=== PATIENT | female | born 2000 | race Caucasian/White ===

== ENCOUNTER 2019-11-12 18:32 | Emergency (ER) | payer OTHER, SELFPAY ==
[2019-11-12 18:37] VITALS: BP 139/95; PULSE 108; RESP 20; TEMP 37.5; O2SAT 100; BMI 25.0
--- NOTE | 2019-11-12 18:48 | DI.CT.S_ITS ---
PROCEDURE: CT ABDOMEN PELVIS W CON INDICATIONS: severe pain, multiple gastric surgeries TECHNIQUE: After the administration of intravenous contrast, 5 mm thick sections acquired from the diaphragm to the symphysis. 5 mm coronal and sagittal reformats were acquired. For radiation dose reduction, the following was used: automated exposure control, adjustment of mA and/or kV according to patient size. COMPARISON: None. FINDINGS: Image quality: Excellent. ABDOMEN: Lung bases: Lung bases are clear. Heart size is normal. Solid organs: Liver is of normal size and moderately diffusely hypodense. There is an ovoid hypervascular mass adjacent to the inferior vena cava in segment VII, and a one slightly more caudal in segment VIII measuring 2.5 cm. And similar lesion is present along the lateral margin of the left hepatic lobe measuring 9 mm. Relative hyperdensity/hyperenhancement in the gallbladder fossa. Gallbladder appears normal. Biliary system is non dilated. Pancreas enhances normally. Spleen is normal in size and enhancement. No adrenal nodules. Kidneys demonstrate normal size and enhancement, without hydronephrosis. Peritoneum and bowel: There is severe distention of the distal rectum. A distinct anal canal is not visible. Semisolid stool as well as peripherally calcified 3.7 cm mass is present dependently in the rectum. There is a colorectal anastomosis and present along the right lateral margin of the rectum. A thickened segment of mid sigmoid is seen. No pericolic inflammation. There is a Wm button percutaneously placed in the left lower quadrant into the proximal sigmoid lumen. The majority of the proximal colon is decompressed. A normal appendix is present. Small bowel loops are of normal caliber. No free fluid or free air. Nodes and vessels: No retroperitoneal or mesenteric adenopathy by size criteria. Aorta and inferior vena cava are normal in size. Miscellaneous: No ventral hernias. PELVIS: Genitourinary: The urinary bladder is distended and anteriorly displaced. Bladder wall thickness is normal. The uterus is vertically oriented. There is a hypervascular corpus luteum on the right ovary. There small calcifications associated with the left ovary. Miscellaneous: No inguinal hernias or adenopathy. Bones: No suspicious bony lesions. No vertebral body compression fractures. IMPRESSION: 1. There is chronic appearing distention of the neorectum without CT evidence of proctitis. The reconstructed anal canal was not well seen. 2. Slight thickening of a short segment of mid sigmoid colon without significant pericolonic inflammation. Colitis is possible but felt less likely. 3. Normal appendix. 4. Moderate hepatic steatosis. 5. 3 hypervascular liver lesions, likely benign hemangiomas or focal nodular hyperplasia. Dictated by: Radha Gonzalez M.D. on 11/12/2019 at 21:01 Approved by: Radha Gonzalez M.D. on 11/12/2019 at 21:24
--- NOTE | 2019-11-12 19:05 | ED_ITS ---
HPI - Abdominal Pain General Chief Complaint: Abdominal Pain Stated Complaint: Bloody Stool, Stomach Pains, Throwing Up Yellow Time Seen by Provider: 11/12/19 18:35 Source: patient Mode of arrival: Ambulatory Limitations: no limitations History of Present Illness HPI narrative: 18-year-old female nonsmoker with extensive medical history presents with a chief complaint of significant epigastric pain for the past day or 2. She states her pain is worse when she moves and improves with rest. She denies any obvious radiation of the pain. She has had nausea but denies any vomiting and states that she has had multiple stools with nothing but blood. She denies fever or chills and is not dizzy nor weak or lightheaded. She does have some sharp reproduceable chest pain an is unclear how long that has been happening. 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 She has a Wm button in place in her left lower quadrant to allow her to irrigate and flush her lower bowels. She had most of her care in [place] and denies establishment with any local surgeons though a note from outside ED suggests she has established with GI at [facility] whom recommended establishing care with colorectal surgery for ongoing care. Related Data Allergies Allergy/AdvReac Type Severity Reaction Status Date / Time iodine Allergy Rash Verified 11/12/19 19:10 contrast Allergy Rash Uncoded 11/12/19 19:10 Review of Systems Constitutional Constitutional: Denies chills, Denies fatigue, Denies fever(s), Denies frequent falls, Denies lethargy and Denies weakness Eyes Eyes: Denies change in vision, Denies eye discharge, Denies irritation and Denies loss of vision ENT Ears, Nose, Mouth, and Throat: Denies change in voice, Denies dizziness, Denies neck pain, Denies sore throat and Denies throat swelling Cardiovascular Cardiovascular: Denies chest pain, Denies irregular heart rhythm, Denies lightheadedness, Denies palpitations, Denies dyspnea, Denies dyspnea on exertion and Denies orthopnea Respiratory Respiratory: Denies cough, Denies dyspnea, Denies dyspnea on exertion and Denies wheezing Gastrointestinal Gastrointestinal: Reports abdominal pain, Denies change in bowel habits, Denies diarrhea, Denies nausea and Denies vomiting Genitourinary Genitourinary: Denies hematuria, Denies flank pain, Denies urinary incontinence and Denies urinary urgency Musculoskeletal Musculoskeletal: Denies back pain, Denies muscle weakness, Denies neck pain, Denies numbness and Denies tingling Integumentary/Breasts Skin/Breast: Denies pruritus, Denies erythema, Denies rash and Denies wounds Neurologic Neurologic: Denies behavioral changes, Denies confusion, Denies dizziness, Denies frequent falls, Denies loss of vision, Denies numbness, Denies tingling and Denies weakness Psychiatric Psychiatric: Denies anxiety, Denies behavioral changes, Denies confusion, Denies depression, Denies homicidal ideation and Denies suicidal ideation Endocrine Endocrine: Denies fatigue, Denies flushing and Denies palpitations Hematologic/Lymphatic Hematologic/Lymphatic: Denies easy bruising Allergic/Immunologic Allergic/Immunologic: Denies urticaria, Denies throat swelling and Denies wheezing Patient History Medical History (Updated 11/13/19 @ 00:15 by Philippe Nowak DO) Imperforate anus (Acute) Social History Smoking Status: Never smoker Smoking Status: Never smoker Substance Use Type: does not use Exam Narrative Exam Narrative: GENERAL: [18] year old patient appears stated age. Well- nourished, well-developed patient, in mild distress. HEAD: Atraumatic. Normocephalic. EYES: Pupils equal round and reactive. Extraocular motions intact. No scleral icterus. No injection or drainage. ENT: Nose without bleeding, purulent drainage. Throat without erythema, tonsillar hypertrophy or exudate. Airway patent. NECK: Trachea midline. Non tender CARDIOVASCULAR: Regular rate and rhythm without murmurs, gallops, or rubs. RESPIRATORY: Clear to auscultation. Breath sounds equal bilaterally. No wheezes, rales, or rhonchi. GASTROINTESTINAL: Abdomen soft, non-tender, nondistended. EXTREMITIES: No edema or joint tenderness. BACK: Nontender without deformity or crepitance. No flank tenderness. NEURO: AOx3. SKIN: No rash or erythema of visible areas Initial Vital Signs Initial Vital Signs: Vital Signs Temperature 99.5 F 11/12/19 18:37 Pulse Rate 108 H 11/12/19 18:37 Respiratory Rate 20 11/12/19 18:37 Blood Pressure 139/95 H 11/12/19 18:37 Pulse Oximetry 100 11/12/19 18:37 Course Orders Ordered: ED Orders 11/12/19 18:48 CT abdomen pelvis w con Stat 11/12/19 18:50 Complete Blood Count AUTO DIFF Stat Comprehensive Metabolic Panel Stat Lipase Stat Magnesium Stat Troponin & CK Cardiac Panel Stat 11/12/19 19:04 EKG-12 Lead Stat 11/12/19 21:08 UA Complete [Urinalysis and Microscopic] Stat 11/12/19 21:26 US abdomen limited Stat 11/12/19 23:37 Hemoglobin and Hematocrit Stat Discontinued Medications Acetaminophen (Tylenol) 650 mg PO NOW ONE Stop: 11/12/19 21:26 Last Admin: 11/12/19 21:48 Dose: 650 mg Documented by: LINDA Al Hydrox/Mg Hydrox/Simethicone 20 ml/ Lidocaine HCl 15 ml 0 ml PO NOW ONE Stop: 11/12/19 23:51 Last Admin: 11/13/19 00:05 Dose: 35 ml Documented by: LINDA Diphenhydramine HCl (Benadryl) 25 mg IV NOW ONE Stop: 11/12/19 19:21 Last Admin: 11/12/19 19:31 Dose: 25 mg Documented by: MEISENB Sodium Chloride (Normal Saline 0.9%) 1,000 mls @ 125 mls/hr IV CONT FLOYD Last Infusion: 11/12/19 21:47 Dose: 0 mls/hr Documented by: Infusion: 11/12/19 21:04 Dose: 1,000 mls/hr Documented by: Admin: 11/12/19 19:30 Dose: 125 mls/hr Documented by: MEISENB Sodium Chloride (Normal Saline 0.9%) 1,000 mls @ 1,000 mls/hr IV BOLUS ONE Stop: 11/13/19 00:29 Last Infusion: 11/13/19 01:31 Dose: 0 mls/hr Documented by: Admin: 11/12/19 23:36 Dose: 1,000 mls/hr Documented by: SUMMERFARErica Ketorolac Tromethamine (Toradol) 15 mg IV NOW ONE Stop: 11/13/19 00:12 Last Admin: 11/13/19 00:18 Dose: 15 mg Documented by: LINDA Methylprednisolone (Solu-Medrol 125 Mg Vial) 125 mg IV NOW ONE Stop: 11/12/19 19:21 Last Admin: 11/12/19 19:31 Dose: 125 mg Documented by: JYOTSNA Pantoprazole Sodium (Protonix) 40 mg IV NOW ONE Stop: 11/12/19 18:46 Last Admin: 11/12/19 19:31 Dose: 40 mg Documented by: JYOTSNA Vital Signs Vital signs: Vital Signs - 8 hr 11/12/19 19:40 11/12/19 21:39 11/12/19 21:48 Temperature 99.0 F 99.0 F Pulse Rate 103 H 106 H Respiratory Rate 18 Blood Pressure Blood Pressure [Left Arm] 125/88 123/84 Pulse Oximetry 100 99 11/12/19 23:30 11/13/19 00:42 11/13/19 01:12 Temperature Pulse Rate 115 H 110 H 95 H Respiratory Rate 12 19 18 Blood Pressure Blood Pressure [Left Arm] 117/70 123/80 146/68 H Pulse Oximetry 97 99 96 11/13/19 01:31 11/13/19 01:32 Temperature 98.4 F Pulse Rate 105 H Respiratory Rate 15 Blood Pressure 117/83 Blood Pressure [Left Arm] Pulse Oximetry 99 MDM - Abdominal Pain Lab Data Result diagrams: 11/12/19 23:37 11/12/19 18:50 Labs: Lab Results 11/12/19 11/12/19 11/12/19 Range/Units 18:50 18:50 18:50 WBC 11.0 (4.5-11.0) X10^3/uL RBC 5.36 H (4.0-5.2) X10^6/uL Hgb 14.3 (12.0-16.0) g/dL Hct 42.8 (36-46) % MCV 79.7 L (80-100) fL MCH 26.7 (26-34) PG MCHC 33.5 (30-36) % RDW 14.3 (11.6-14.8) % Plt Count 362 (150-400) X10^3/uL Neut % (Auto) 59.1 (50-75) % Lymph % (Auto) 29.8 (25-40) % Monroe % (Auto) 7.2 (3-14) % Eos % (Auto) 3.3 (2-4) % Baso % (Auto) 0.6 (0-2) % Neut # (Auto) 6500 (5551-7152) /uL Lymph # (Auto) 3300 (6648-9244) /uL Monroe # (Auto) 800 (0-900) /uL Eos # (Auto) 400 (0-450) /uL Baso # (Auto) 100 (0-100) /uL Sodium 140 (137-145) mmol/L Potassium 4.1 (3.4-5.1) mmol/L Chloride 107 (98-107) mmol/L Carbon Dioxide 24 (22-32) mmol/L BUN 6 L (7-17) mg/dL Creatinine 0.54 (0.52-1.04) mg/dL Estimated GFR > 60.0 (>60) mL/min BUN/Creatinine Ratio 11.1 (6-22) Glucose 94 (70-100) mg/dL Calcium 10.1 (8.4-10.2) mg/dL Magnesium 2.2 (1.6-2.3) mg/dL Total Bilirubin 0.7 (0.2-1.3) mg/dL AST 65 H (14-36) IU/L ALT 90 H (<35) IU/L Alkaline Phosphatase 98 (38-126) U/L Total Creatine Kinase (30-135) U/L CK-MB (CK-2) CK-MB (CK-2) Rel Index Troponin I (0.01-0.034) ng/mL Total Protein 8.7 H (6.3-8.2) g/dL Albumin 5.0 (3.5-5.0) g/dL Globulin 3.7 (1.7-4.1) g/dL Albumin/Globulin Ratio 1.4 (1.0-2.8) Lipase 215 (23-300) U/L Urine Color Urine Appearance Urine pH (4.5-8.0) Ur Specific [place] (1.000-1.035) Urine Protein (Negative) Urine Glucose (UA) (Negative) g/dL Urine Ketones (NEGATIVE) Urine Occult Blood (Negative) Urine Nitrate (Negative) Urine Bilirubin (NEGATIVE) Urine Urobilinogen (0.2) E.U./dL Ur Leukocyte Esterase (NEGATIVE) Urine RBC (0-5/HPF) Urine WBC (0-5/HPF) Ur Squamous Epith Cells (0-5/HPF) Urine Bacteria (None) Ur Culture Indicated? 11/12/19 11/12/19 11/12/19 Range/Units 18:50 21:08 23:37 WBC (4.5-11.0) X10^3/uL RBC (4.0-5.2) X10^6/uL Hgb 13.7 (12.0-16.0) g/dL Hct 41.3 (36-46) % MCV (80-100) fL MCH (26-34) PG MCHC (30-36) % RDW (11.6-14.8) % Plt Count (150-400) X10^3/uL Neut % (Auto) (50-75) % Lymph % (Auto) (25-40) % Monroe % (Auto) (3-14) % Eos % (Auto) (2-4) % Baso % (Auto) (0-2) % Neut # (Auto) (0700-3467) /uL Lymph # (Auto) (1365-7510) /uL Monroe # (Auto) (0-900) /uL Eos # (Auto) (0-450) /uL Baso # (Auto) (0-100) /uL Sodium (137-145) mmol/L Potassium (3.4-5.1) mmol/L Chloride (98-107) mmol/L Carbon Dioxide (22-32) mmol/L BUN (7-17) mg/dL Creatinine (0.52-1.04) mg/dL Estimated GFR (>60) mL/min BUN/Creatinine Ratio (6-22) Glucose (70-100) mg/dL Calcium (8.4-10.2) mg/dL Magnesium (1.6-2.3) mg/dL Total Bilirubin (0.2-1.3) mg/dL AST (14-36) IU/L ALT (<35) IU/L Alkaline Phosphatase (38-126) U/L Total Creatine Kinase 71 (30-135) U/L CK-MB (CK-2) TNP CK-MB (CK-2) Rel Index TNP Troponin I < 0.012 (0.01-0.034) ng/mL Total Protein (6.3-8.2) g/dL Albumin (3.5-5.0) g/dL Globulin (1.7-4.1) g/dL Albumin/Globulin Ratio (1.0-2.8) Lipase (23-300) U/L Urine Color Yellow Urine Appearance Clear Urine pH 7.0 (4.5-8.0) Ur Specific [place] <=1.005 (1.000-1.035) Urine Protein Negative (Negative) Urine Glucose (UA) Negative (Negative) g/dL Urine Ketones Negative (NEGATIVE) Urine Occult Blood Negative (Negative) Urine Nitrate Negative (Negative) Urine Bilirubin Negative (NEGATIVE) Urine Urobilinogen 0.2 (0.2) E.U./dL Ur Leukocyte Esterase Negative (NEGATIVE) Urine RBC None seen (0-5/HPF) Urine WBC None seen (0-5/HPF) Ur Squamous Epith Cells 1-5 /hpf (0-5/HPF) Urine Bacteria Many (>30) H (None) Ur Culture Indicated? Cult not indicated Imaging Data CT scan - abdomen/pelvis: Radiologist's Impression: [place] [address] CT Scan Report Signed Patient: Jaye Stephens [facility]#: [id number] : 2000Acct:[id number] Age/Sex: te of Service: 11/12/19 Loc: ED Accession Number: [id number] Procedure: CT abdomen pelvis w con Ordering Provider: Philippe Nowak D.O. PROCEDURE: CT ABDOMEN PELVIS W CON INDICATIONS: severe pain, multiple gastric surgeries TECHNIQUE: After the administration of intravenous contrast, 5 mm thick sections acquired from the diaphragm to the symphysis. 5 mm coronal and sagittal reformats were acquired. For radiation dose reduction, the following was used: automated exposure control, adjustment of mA and/or kV according to patient size. COMPARISON: None. FINDINGS: Image quality: Excellent. ABDOMEN: Lung bases: Lung bases are clear. Heart size is normal. Solid organs: Liver is of normal size and moderately diffusely hypodense. There is an ovoid hypervascular mass adjacent to the inferior vena cava in segment VII, and a one slightly more caudal in segment VIII measuring 2.5 cm. And similar lesion is present along the lateral margin of the left hepatic lobe measuring 9 mm. Relative hyperdensity/hyperenhancement in the gallbladder fossa. Gallbladder appears normal. Biliary system is non dilated. Pancreas enhances normally. Spleen is normal in size and enhancement. No adrenal nodules. Kidneys demonstrate normal size and enha ncement, without hydronephrosis. Peritoneum and bowel: There is severe distention of the distal rectum. A distinct anal canal is not visible. Semisolid stool as well as peripherally calcified 3.7 cm mass is present dependently in the rectum. There is a colorectal anastomosis and present along the right lateral margin of the rectum. A thickened segment of mid sigmoid is seen. No pericolic inflammation. There is a Wm button percutaneously placed in the left lower quadrant into the proximal sigmoid lumen. The majority of the proximal colon is decompressed. A normal appendix is present. Small bowel loops are of normal caliber. No free fluid or free air. Nodes and vessels: No retroperitoneal or mesenteric adenopathy by size criteria. Aorta and inferior vena cava are normal in size. Miscellaneous: No ventral hernias. PELVIS: Genitourinary: The urinary bladder is distended and anteriorly displaced. Bladder wall thickness is normal. The uterus is vertically oriented. There is a hypervascular corpus luteum on the right ovary. There small calcifications associated with the left ovary. Miscellaneous: No inguinal hernias or adenopathy. Bones: No suspicious bony lesions. No vertebral body compression fractures. IMPRESSION: 1. There is chronic appearing distention of the neorectum without CT evidence of proctitis. The reconstructed anal canal was not well seen. 2. Slight thickening of a short segment of mid sigmoid colon without significant pericolonic inflammation. Colitis is possible but felt less likely. 3. Normal appendix. 4. Moderate hepatic steatosis. 5. 3 hypervascular liver lesions, likely benign hemangiomas or focal nodular hyperplasia. Dictated by: Radha Gonzalez M.D. on 11/12/2019 at 21:01 Approved by: Radha Gonzalez M.D. on 11/12/2019 at 21:24 US - abdomen: Radiologist's Impression: [facility] Narrative Medical decision making narrative: Patient with chronic complex abdominal problems. Very reassuring exam, imaging, and labs. Monitored for about 5-6 hours and patient had no vomiting or bowel movements during visit. Repeat H/H remain stable. Feeling better after fluids and GI cocktail, still a minimal lingering headache. Upon completion of visit she is given return precautions. She understands and agrees with the plan and has had her questions answered to her apparent satisfaction. Discharge Plan Departure Patient Disposition: Home Clinical Impression: Abdominal pain Qualifiers: Abdominal location: epigastric Qualified Code(s): R10.13 - Epigastric pain Headache Qualifiers: Headache type: unspecified Headache chronicity pattern: acute headache Intractability: not intractable Qualified Code(s): R51 - Headache Discharge Date/Time: 11/13/19 01:34 Instructions: DI for Abdominal Pain-Adult Activity Restrictions/Additional Instructions: *You have been diagnosed with [epigastric pain and headache with episodes of rectal bleeding. Labs, ultrasound and CT are all very reassuring] *What to do: * continue to take medications as directed *Follow up with your primary care provider in 2-3 days, call for an appointment. Let them know you were seen in the Emergency Department and that we ask that you be seen in follow up *Return to ER if you should have any new, worsening or concerning symptoms
[2019-11-12 19:11] LABS: Add Manual Diff / Slide Review NO; Basophils Absolute Auto 100 /uL (0-100); Basophils Percent Auto 0.6 % (0-2); Eosinophils Absolute Auto 400 /uL (0-450); Eosinophils Percent Auto 3.3 % (2-4); Hematocrit 42.8 % (36-46); Hemoglobin 14.3 g/dL (12.0-16.0); Lymphocytes Absolute Auto 3300 /uL (1100-4500); Lymphocytes Percent Auto 29.8 % (25-40); Mean Corpuscular HGB Conc 33.5 % (30-36); Mean Corpuscular Hemoglobin 26.7 PG (26-34); Mean Corpuscular Volume 79.7 fL (80-100); Monocytes Absolute Auto 800 /uL (0-900); Monocytes Percent Auto 7.2 % (3-14); Neutrophils Absolute Auto 6500 /uL (1500-7000); Neutrophils Percent Auto 59.1 % (50-75); Platelet Count 362 X10^3/uL (150-400); Red Blood Cell Count 5.36 X10^6/uL (4.0-5.2); Red Cell Distribution Width 14.3 % (11.6-14.8)
[2019-11-12 19:30] LABS: Alanine Aminotransferase 90 IU/L (<35); Albumin Globulin Ratio 1.4 (1.0-2.8); Alkaline Phosphatase 98 U/L (38-126); Aspartate Aminotransferase 65 IU/L (14-36); BUN Creatinine Ratio 11.1 (6-22); Bilirubin Total 0.7 mg/dL (0.2-1.3); Blood Urea Nitrogen 6 mg/dL (7-17); Calcium 10.1 mg/dL (8.4-10.2); Carbon Dioxide 24 mmol/L (22-32); Chloride 107 mmol/L (98-107); Creatine Kinase 71 U/L (30-135); Estimated Glomerular Filt Rate > 60.0 mL/min (>60); Globulin 3.7 g/dL (1.7-4.1); Glucose 94 mg/dL (70-100); HEMOLYSIS < 15 (0-50); Potassium 4.1 mmol/L (3.4-5.1); Sodium 140 mmol/L (137-145); Total Protein 8.7 g/dL (6.3-8.2)
[2019-11-12] MEDS: SODIUM CHLORIDE 0.9% 1,000 ML 125 ML IV (19:30)
[2019-11-12 19:31] LABS: Lipase 215 U/L (23-300); Magnesium 2.2 mg/dL (1.6-2.3)
[2019-11-12] MEDS: methylPREDNISolone 125 MG/2 ML VIAL IV (19:31)
[2019-11-12] MEDS: PANTOPRAZOLE 40 MG VIAL IV (19:31)
[2019-11-12] MEDS: diphenhydrAMINE 50 MG/ML VIAL 25 MG IV (19:31)
[2019-11-12 19:40] VITALS: BP 125/88; PULSE 103; RESP 18; O2SAT 100
[2019-11-12 19:41] LABS: Troponin I < 0.012 ng/mL (0.01-0.034)
--- NOTE | 2019-11-12 19:41 | PC.NURSE ---
pt reports , supine position, chest discomfort is better. antonio button, used for illimination once a week, uses go nenately.
--- NOTE | 2019-11-12 21:04 | PC.NURSE ---
patient HR 110, provider notified, NS rate increased to bolus.
--- NOTE | 2019-11-12 21:06 | PC.NURSE ---
patient reports mild itchyness from IV contrast. States it's ok and getting a little better. Provider notified and aware.
[2019-11-12 21:21] LABS: RBC Urine None Seen (0-5/HPF); WBC Urine None Seen (0-5/HPF)
--- NOTE | 2019-11-12 21:26 | DI.US.S_ITS ---
PROCEDURE: US ABDOMEN LIMITED INDICATIONS: EPIGASTRIC PAIN TECHNIQUE: Real-time focused scanning was performed of the abdomen, with image documentation. COMPARISON: [facility], CT, CT ABDOMEN PELVIS W CON, 11/12/2019, 20:24. FINDINGS: The liver is prominently hyperechoic, consistent with extensive fatty infiltration. The prior CT scanning earlier same day had identified 3 separate hypervascular lesions, rounded, located adjacent to the high margin of the intrahepatic IVC, more inferiorly at the right posterior hepatic segment also, and within the far lateral left lateral hepatic segment. Of these 3 lesions only one is identifiable by ultrasound accurately, largest lesion located on CT scan there is T2 image 19. And is of uncertain etiology and clinical significance in this young 18 year-old patient. An of gallbladder wall is at the upper limits of normal, 3 mm. Adenomyomatosis of cholesterol crystal as xation within the mucosal layer of the gallbladder can be seen as, tail artifacts. IMPRESSION: 1. Prominent presumed fatty infiltration throughout the liver is present, requiring close clinical correlation for underlying etiology in a young 18 year-old patient. 2. The CT scanning performed or same day had identified 3 separate hepatic hypervascular lesions one of which is clearly visualized by this study and does not demonstrate characteristic imaging findings of a hepatic hemangioma. MR scanning without and with contrast appears warranted for more accurate assessment of each of these lesions. 3. 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 Gallbladder wall thickness at the upper limits of normal. Dictated by: Wyatt Barajas M.D. on 11/13/2019 at 8:12 Approved by: Wyatt Barajas M.D. on 11/13/2019 at 8:22
[2019-11-12 21:29] LABS: Appearance Urine UA CLEAR; Bilirubin Urine UA NEGATIVE (NEGATIVE); Color Urine UA YELLOW; Glucose Urine UA NEGATIVE (Negative); Ketones Urine UA NEGATIVE (NEGATIVE); Leukocyte Esterase Urine UA NEGATIVE (NEGATIVE); Nitrite Urine UA NEGATIVE (Negative); Occult Blood Urine UA NEGATIVE (Negative); Protein Urine UA NEGATIVE (Negative); Specific Gravity Urine UA <=1.005 (1.000-1.035); Urobilinogen Urine UA 0.2 E.U./dL (0.2)
[2019-11-12 21:34] LABS: Bacteria Urine Many (>30); Culture Indicated Urine Cult Not Indicated; Squamous Epithelial Cell Urine 1-5 /HPF (0-5/HPF)
[2019-11-12 21:39] VITALS: BP 123/84; PULSE 106; TEMP 37.2; O2SAT 99
--- NOTE | 2019-11-12 21:39 | PC.NURSE ---
provider aware of elevated oral temp. tylenol order received.
[2019-11-12 21:48] VITALS: TEMP 37.2
[2019-11-12] MEDS: ACETAMINOPHEN 325 MG TABLET 650 MG PO (21:48)
[2019-11-12 23:30] VITALS: BP 117/70; PULSE 115; RESP 12; O2SAT 97
[2019-11-12] MEDS: SODIUM CHLORIDE 0.9% 1,000 ML 1000 ML IV (23:36)
[2019-11-12 23:47] LABS: Hematocrit 41.3 % (36-46); Hemoglobin 13.7 g/dL (12.0-16.0)
[2019-11-13] MEDS: MAG HYDROX/ALUMINUM/SIMETH SUS 20 ML, LIDOCAINE VISCOUS 2% 15 ML PO (00:05)
[2019-11-13] MEDS: KETOROLAC 60 MG/2 ML VIAL 15 MG IV (00:18)
[2019-11-13 00:42] VITALS: BP 123/80; PULSE 110; RESP 19; O2SAT 99
[2019-11-13 01:12] VITALS: BP 146/68; PULSE 95; RESP 18; O2SAT 96
[2019-11-13 01:31] VITALS: TEMP 36.9
[2019-11-13 01:32] VITALS: BP 117/83; PULSE 105; RESP 15; O2SAT 99
== END 2019-11-13 01:34 | disposition home or self-care (01) ==
PROVIDERS: Emergency Provider Emergency Medicine
DX: R10.13 Epigastric pain (principal); R51 Headache; K62.5 Hemorrhage of anus and rectum
CPT/HCPCS: 36415; 74177; 76705; 80053; 81001; 82550; 83690; 83735; 84484; 85014; 85018; 85025; 93005; 96361; 96374; 96375; 99284; C9113; J1200; J1885; J2930; Q9967

== ENCOUNTER 2019-11-26 13:44 | Emergency (ER) | payer OTHER, SELFPAY ==
[2019-11-26 13:51] VITALS: BP 137/89; PULSE 113; RESP 18; TEMP 36.1; O2SAT 97
--- NOTE | 2019-11-26 14:23 | ED_ITS ---
HPI - Abdominal Pain <LESLIE RomanP-BC - Last Filed: 11/26/19 19:01> General Chief Complaint: Abdominal Pain Stated Complaint: leaky gastroide tube needs attention bad Time Seen by Provider: 11/26/19 13:49 Source: patient Mode of arrival: Ambulatory Limitations: no limitations History of Present Illness HPI narrative: The patient is a 18-year-old female nonsmoker with a complicated abdominal surgical history who presents with a chief complaint of continued ?G tube issues. She was seen at this facility 2 weeks ago, chief complaint of abdominal pain, received copious workup including labs, repeat hemoglobin and hematocrit, ultrasound and CT. She states that since then, she has not followed up with primary care provider or her GI provider. She states that she is not able to have an adequate bowel movement, that she is passing chalky stuff and that her to is flushing back yellow feculent matter that smells very bad. She she is also passing some blood in her bowel movements, though it this has decreased. She states that she has tried to most recently use soapsuds and G oLYTELY through her tube to try to have a bowel movement. This is not worked. She states she is unable to use enemas. She has not tried senna, Colace, MiraLax as she states that ?no longer works. She has also not tried magnesium citrate as the taste is too bad.She denies any fevers. She denies any shortness of breath. She states that she has received most of her care in [place], though she sees a GI specialist through [facility], but does not know who they are. She states that her abdomen is much more distended since the last time she was here 2 weeks ago. She does not remember the last time she had a ?full bowel movement. She has tried to disimpact herself at home, though notes that she has a very ?very hard stool that she is unable to get out. Additionally she states that she is approximately 5 weeks at this point. She states that her last menstrual cycle was the October 19, 2019 Related Data Previous Rx's Medication Instructions Recorded cephalexin 500 mg PO BID #14 cap 11/26/19 Allergies Allergy/AdvReac Type Severity Reaction Status Date / Time iodine Allergy Rash Verified 11/12/19 19:10 contrast Allergy Rash Uncoded 04/05/20 19:10 Review of Systems <Zeina Amezquita BOX GLUER-BC - Last Filed: 11/26/19 19:01> Review of Systems Narrative: GENERAL: Denies chills, fatigue, malaise, fever, sweats. HEENT: Denies sinus pain, ear pain, sore throat, difficulty swallowing, dizziness. RESPIRATORY: Denies dyspnea, cough, wheezing, hemoptysis, sputum. CARDIOVASCULAR: Denies chest pain, palpitations, orthopnea, edema, GASTROINTESTINAL: See HPI : See HPI MUSCULOSKELETAL: denies weakness, joint pain, or bony pain SKIN: Denies rash, skin lesions, or other NEUROLOGIC: Denies weakness, headache, numbness, change in speech, confusion, seizures, incoordination. PSYCHIATRIC: No concerning psychosocial issues. 12 point review of systems is negative except for those stated above Patient History <Zeina AmezquitaLESLIEP- - Last Filed: 11/26/19 19:01> Medical History (Updated 11/28/19 @ 00:00 by ) Imperforate anus (Acute) Social History Smoking Status: Never smoker Smoking Status: Never smoker Substance Use Type: does not use Exam <[facility]ita [facility] - Last Filed: 11/26/19 19:01> Narrative Exam Narrative: GENERAL: This is a well-nourished, well-developed patient, in no acute distress HEAD: Atraumatic. Normocephalic. No temporal or scalp tenderness. EYES: Pupils equal round and reactive. Extraocular motions intact. No scleral icterus. No injection or drainage. ENT: Nose without bleeding, purulent drainage or septal hematoma. Throat without erythema, tonsillar hypertrophy or exudate. Uvula midline. Airway patent. NECK: Trachea midline. No JVD or lymphadenopathy. Supple, nontender, no meningeal signs. CARDIOVASCULAR: Regular rate and rhythm RESPIRATORY: Clear to auscultation. Breath sounds equal bilaterally. No wheezes, rales, or rhonchi. No cough. No increased respiratory effort. No accessory muscle use. GASTROINTESTINAL: Abdomen distended, diffusely tender, active bowel sounds all 4 quadrants. No hepato-splenomegaly, or palpable masses. No guarding. Tube site left lower abdomen with no extending erythema, feculent drainage noted EXTREMITIES: No clubbing, cyanosis, or edema. No joint tenderness, effusion, or edema noted. BACK: Nontender without deformity or crepitance. No flank tenderness. NEURO: AOx3. SKIN: No rash or erythema on visible skin. See GI exam. Rectal: Gabrielle RN at bedside. No gross blood. No rectal tone which is normal for patient. No palpable stool in rectal vault. Initial Vital Signs Initial Vital Signs: Vital Signs Temperature 97 F L 11/26/19 13:51 Pulse Rate 113 H 11/26/19 13:51 Respiratory Rate 18 11/26/19 13:51 Blood Pressure 137/89 11/26/19 13:51 Pulse Oximetry 97 11/26/19 13:51 <Zeina Jewell DO - Last Filed: 12/08/19 08:18> Initial Vital Signs Initial Vital Signs: Vital Signs Temperature 97 F L 11/26/19 13:51 Pulse Rate 113 H 11/26/19 13:51 Respiratory Rate 18 11/26/19 13:51 Blood Pressure 137/89 11/26/19 13:51 Pulse Oximetry 97 11/26/19 13:51 Scores <ALESSANDRA Roman - Last Filed: 11/26/19 19:01> GCS Ravin coma scale eye opening: Spontaneous [place] coma scale verbal response: Orientated Ravin coma scale motor response: Obey commands Ravin coma scale total score: 15 Course <ALESSANDRA Roman - Last Filed: 11/26/19 19:01> Orders Ordered: Discontinued Medications Cephalexin HCl (Keflex) 500 mg PO NOW ONE Stop: 11/26/19 17:51 Last Admin: 11/26/19 18:02 Dose: 500 mg Documented by: PEPESENBrady Sodium Chloride (Normal Saline 0.9%) 1,000 mls @ 1,000 mls/hr IV BOLUS ONE Stop: 11/26/19 15:07 Last Infusion: 11/26/19 16:04 Dose: 0 mls/hr Documented by: Admin: 11/26/19 14:25 Dose: 1,000 mls/hr Documented by: MEISENB Magnesium Citrate (Magnesium Citrate) 300 ml PO NOW ONE Stop: 11/26/19 15:43 Last Admin: 11/26/19 16:00 Dose: 300 ml Documented by: PEPESENB Ondansetron HCl (Zofran) 4 mg IV NOW ONE Stop: 11/26/19 14:09 Last Admin: 11/26/19 14:25 Dose: 4 mg Documented by: JYOTSNA Ondansetron HCl (Zofran) 4 mg IV NOW ONE Stop: 11/26/19 16:57 Last Admin: 11/26/19 17:00 Dose: 4 mg Documented by: TIFFANI Reevaluation(s) Reevaluation #1: Had a long discussion with patient regarding how she would like to proceed. Her lab work is reassuring, no leukocytosis, no elevated lactate. We discussed the possibility of obtaining an MRI to evaluate for bowel obstruction. She would like to hold off on that is at this point time. I am o prema with this as she is passing gas, not vomiting, has no leukocytosis or elevated lactate. She would like to proceed with magnesium citrate even that ?does not taste good? to see if she can have a bowel movement. Given the cramping in her lower abdomen, we will obtain an OB ultrasound though this could be attributed to UTI. Time: 14:00 Vital Signs Vital signs: Vital Signs - 8 hr 11/26/19 13:51 11/26/19 14:55 11/26/19 17:19 Temperature 97 F L Pulse Rate 113 H 119 H 85 Respiratory Rate 18 18 18 Blood Pressure 137/89 Blood Pressure [Left Arm] 119/74 113/68 Pulse Oximetry 97 99 <Zeina Jewell, DO - Last Filed: 12/08/19 08:18> Orders Ordered: Discontinued Medications Cephalexin HCl (Keflex) 500 mg PO NOW ONE Stop: 11/26/19 17:51 Last Admin: 11/26/19 18:02 Dose: 500 mg Documented by: JYOTSNA Sodium Chloride (Normal Saline 0.9%) 1,000 mls @ 1,000 mls/hr IV BOLUS ONE Stop: 11/26/19 15:07 Last Infusion: 11/26/19 16:04 Dose: 0 mls/hr Documented by: Admin: 11/26/19 14:25 Dose: 1,000 mls/hr Documented by: JYOTSNA Magnesium Citrate (Magnesium Citrate) 300 ml PO NOW ONE Stop: 11/26/19 15:43 Last Admin: 11/26/19 16:00 Dose: 300 ml Documented by: MEISENBrady Ondansetron HCl (Zofran) 4 mg IV NOW ONE Stop: 11/26/19 14:09 Last Admin: 11/26/19 14:25 Dose: 4 mg Documented by: MEISENB Ondansetron HCl (Zofran) 4 mg IV NOW ONE Stop: 11/26/19 16:57 Last Admin: 11/26/19 17:00 Dose: 4 mg Documented by: TIFFANI Vital Signs Vital signs: Vital Signs - 8 hr 11/26/19 13:51 11/26/19 14:55 11/26/19 17:19 Temperature 97 F L Pulse Rate 113 H 119 H 85 Respiratory Rate 18 18 18 Blood Pressure 137/89 Blood Pressure [Left Arm] 119/74 113/68 Pulse Oximetry 97 99 MDM - Abdominal Pain <GUERA Roman- - Last Filed: 11/26/19 19:01> Differential Diagnosis Differential diagnosis: Likely abdominal pain, constipation and small bowel obstruction Lab Data Result diagrams: 11/26/19 14:17 11/26/19 14:17 Labs: Lab Results 11/26/19 11/26/19 11/26/19 Range/Units 14:14 14:17 14:17 WBC 8.1 (4.5-11.0) X10^3/uL RBC 5.22 H (4.0-5.2) X10^6/uL Hgb 13.9 (12.0-16.0) g/dL Hct 41.9 (36-46) % MCV 80.3 (80-100) fL MCH 26.6 (26-34) PG MCHC 33.1 (30-36) % RDW 14.5 (11.6-14.8) % Plt Count 346 (150-400) X10^3/uL Neut % (Auto) 70.6 (50-75) % Lymph % (Auto) 21.4 L (25-40) % [place] % (Auto) 5.0 (3-14) % Eos % (Auto) 2.7 (2-4) % Baso % (Auto) 0.3 (0-2) % Neut # (Auto) 5800 (5388-5046) /uL Lymph # (Auto) 1700 (9618-0677) /uL [place] # (Auto) 400 (0-900) /uL Eos # (Auto) 200 (0-450) /uL Baso # (Auto) 0 (0-100) /uL Sodium 139 (137-145) mmol/L Potassium 3.7 (3.4-5.1) mmol/L Chloride 104 (98-107) mmol/L Carbon Dioxide 24 (22-32) mmol/L BUN 5 L (7-17) mg/dL Creatinine 0.59 (0.52-1.04) mg/dL Estimated GFR > 60.0 (>60) mL/min BUN/Creatinine Ratio 8.5 (6-22) Glucose 106 H (70-100) mg/dL Lactate (0.7-2.1) mmol/L Calcium 9.8 (8.4-10.2) mg/dL Total Bilirubin 0.7 (0.2-1.3) mg/dL AST 70 H (14-36) IU/L ALT 98 H (<35) IU/L Alkaline Phosphatase 81 (38-126) U/L Total Protein 8.4 H (6.3-8.2) g/dL Albumin 4.9 (3.5-5.0) g/dL Globulin 3.5 (1.7-4.1) g/dL Albumin/Globulin Ratio 1.4 (1.0-2.8) Amylase 79 (30-110) U/L Lipase 224 (23-300) U/L HCG, Quant 8550.0 mIU/mL Urine RBC 0-1/hpf (0-5/HPF) Urine WBC 1-5/hpf (0-5/HPF) Ur Squamous Epith Cells >30 /hpf H D (0-5/HPF) Urine Bacteria Many (>30) H (None) Ur Culture Indicated? Culture not indicate Micro UA Comment 11/26/19 Range/Units 14:50 WBC (4.5-11.0) X10^3/uL RBC (4.0-5.2) X10^6/uL Hgb (12.0-16.0) g/dL Hct (36-46) % MCV (80-100) fL MCH (26-34) PG MCHC (30-36) % RDW (11.6-14.8) % Plt Count (150-400) X10^3/uL Neut % (Auto) (50-75) % Lymph % (Auto) (25-40) % [place] % (Auto) (3-14) % Eos % (Auto) (2-4) % Baso % (Auto) (0-2) % Neut # (Auto) (9692-3763) /uL Lymph # (Auto) (2402-8324) /uL [place] # (Auto) (0-900) /uL Eos # (Auto) (0-450) /uL Baso # (Auto) (0-100) /uL Sodium (137-145) mmol/L Potassium (3.4-5.1) mmol/L Chloride (98-107) mmol/L Carbon Dioxide (22-32) mmol/L BUN (7-17) mg/dL Creatinine (0.52-1.04) mg/dL Estimated GFR (>60) mL/min BUN/Creatinine Ratio (6-22) Glucose (70-100) mg/dL Lactate 1.9 (0.7-2.1) mmol/L Calcium (8.4-10.2) mg/dL Total Bilirubin (0.2-1.3) mg/dL AST (14-36) IU/L ALT (<35) IU/L Alkaline Phosphatase (38-126) U/L Total Protein (6.3-8.2) g/dL Albumin (3.5-5.0) g/dL Globulin (1.7-4.1) g/dL Albumin/Globulin Ratio (1.0-2.8) Amylase (30-110) U/L Lipase (23-300) U/L HCG, Quant mIU/mL Urine RBC (0-5/HPF) Urine WBC (0-5/HPF) Ur Squamous Epith Cells (0-5/HPF) Urine Bacteria (None) Ur Culture Indicated? Micro UA Comment Point of care testing: Point of Care Testing Test Results Positive Urine Dip Bedside Urine Glucose Negative Bedside Urine Bilirubin - Negative Bedside Urine Ketone +/- 5 Urine Specific [place] 1.025 Bedside Urine Occult Blood +/- Bedside Urine pH 6.0 Bedside Urine Protein + 30 Bedside Urine Urobilinogen +/- 1mg Bedside Urine Nitrite + Positive Bedside Urine Leukocytes +/- 15 Esterase Imaging Data US - OB: Radiologist's Impression: [address] [address] Ultrasound Report Signed Patient: Jaye Stephens [facility]#: [id number] : 2000Acct:[id number] Age/Sex: te of Service: 11/26/19 Loc: ED Accession Number: [id number] Procedure: US OB <= 14 weeks fetus Ordering Provider: Zeina AmezquitaBC PROCEDURE: US OB <= 14 WEEKS FETUS INDICATIONS: WITH ABDOMINAL PAIN OUTSIDE/PRIOR DATING DATA: Last menstrual period (LMP): 10/21/19. LMP-based estimated date of delivery (LOLITA): 07/27/20. First dating scan (date and location): 11/26/19. Estimated date of delivery (LOLITA) from first dating scan: 07/25/20. TECHNIQUE: Real-time scanning was performed of the fetus and maternal pelvic organs, with image documentation. Endovaginal scanning was also performed to better visualize the fetus and maternal ovaries. COMPARISON: None. FINDINGS: Embryo: A single intrauterine gestational sac is identified with a mean gestational sac diameter of 9 mm, correlating with an estimated gestational age of 5 weeks 3 days. A faint yolk sac appears to be present. However, a pole is not definitely appreciated. No definitive subchorionic hemorrhage is appreciated. Maternal organs: Ovaries appear to be grossly within normal limits. Limited images through the kidneys demonstrate no hydronephrosis. IMPRESSION: 1. Single intrauterine gestational sac has an estimated gestational age of 5 weeks 3 days (sonographic LOLITA 07/25/20). 2. A pole is not yet visualized, which is not unusual for the size of the gestational sac. A followup pelvic ultrasound in 1-2 weeks would be helpful to document viability. Dictated by: Vamsi Ruth M.D. on 11/26/2019 at 16:40 Approved by: Vamsi Ruth M.D. on 11/26/2019 at 16:43 MDM Narrative Medical decision making narrative: The patient is a 18-year-old female who presents with a chief complaint of abdominal pain and leaking around her gastric tube. Her lab work is reassuring, no leukocytosis or elevated lactate. She is able to keep down p.o. food and fluids, is passing gas and is afebrile, so I do not believe that she has a bowel obstruction at this point time. She is , given her abdominal pain with we did obtain an ultrasound, which showed no acute findings at this point time it shows a intrauterine sac. However her does complicate imaging at this point time. She declined possibility of an MRI she wants to hold off on that at this point. She does have a urinary tract infection with nitrates, so I placed her on Keflex. Given that she does not know when her last bowel movement was, is distended, she was given Mag citrate in the emergency department and was able to pass hard stool. She felt much improved after this in the leaking around her gastric tube stopped. She requested to go home multiple times. I discussed at length importance of following up with primary care provider as well as her GI provider and her OBGYN. I did discuss at length strict return precautions including abdominal pain with fever, inability keep down fluids or any acute concerns. Urine cultures pending upon discharge. I discussed at length coming back to the emergency department for any acute concerns and follow up with primary care provider. Patient has no questions or concerns upon discharge. <Zeina Jewell, DO - Last Filed: 12/08/19 08:18> Lab Data Attestation: I reviewed the patient's lab results. Labs: Lab Results 11/26/19 11/26/19 11/26/19 Range/Units 14:14 14:17 14:17 WBC 8.1 (4.5-11.0) X10^3/uL RBC 5.22 H (4.0-5.2) X10^6/uL Hgb 13.9 (12.0-16.0) g/dL Hct 41.9 (36-46) % MCV 80.3 (80-100) fL MCH 26.6 (26-34) PG MCHC 33.1 (30-36) % RDW 14.5 (11.6-14.8) % Plt Count 346 (150-400) X10^3/uL Neut % (Auto) 70.6 (50-75) % Lymph % (Auto) 21.4 L (25-40) % [place] % (Auto) 5.0 (3-14) % Eos % (Auto) 2.7 (2-4) % Baso % (Auto) 0.3 (0-2) % Neut # (Auto) 5800 (4430-8531) /uL Lymph # (Auto) 1700 (6562-5966) /uL [place] # (Auto) 400 (0-900) /uL Eos # (Auto) 200 (0-450) /uL Baso # (Auto) 0 (0-100) /uL Sodium 139 (137-145) mmol/L Potassium 3.7 (3.4-5.1) mmol/L Chloride 104 (98-107) mmol/L Carbon Dioxide 24 (22-32) mmol/L BUN 5 L (7-17) mg/dL Creatinine 0.59 (0.52-1.04) mg/dL Estimated GFR > 60.0 (>60) mL/min BUN/Creatinine Ratio 8.5 (6-22) Glucose 106 H (70-100) mg/dL Lactate (0.7-2.1) mmol/L Calcium 9.8 (8.4-10.2) mg/dL Total Bilirubin 0.7 (0.2-1.3) mg/dL AST 70 H (14-36) IU/L ALT 98 H (<35) IU/L Alkaline Phosphatase 81 (38-126) U/L Total Protein 8.4 H (6.3-8.2) g/dL Albumin 4.9 (3.5-5.0) g/dL Globulin 3.5 (1.7-4.1) g/dL Albumin/Globulin Ratio 1.4 (1.0-2.8) Amylase 79 (30-110) U/L Lipase 224 (23-300) U/L HCG, Quant 8550.0 mIU/mL Urine RBC 0-1/hpf (0-5/HPF) Urine WBC 1-5/hpf (0-5/HPF) Ur Squamous Epith Cells >30 /hpf H D (0-5/HPF) Urine Bacteria Many (>30) H (None) Ur Culture Indicated? Culture not indicate Micro UA Comment 11/26/19 Range/Units 14:50 WBC (4.5-11.0) X10^3/uL RBC (4.0-5.2) X10^6/uL Hgb (12.0-16.0) g/dL Hct (36-46) % MCV (80-100) fL MCH (26-34) PG MCHC (30-36) % RDW (11.6-14.8) % Plt Count (150-400) X10^3/uL Neut % (Auto) (50-75) % Lymph % (Auto) (25-40) % [place] % (Auto) (3-14) % Eos % (Auto) (2-4) % Baso % (Auto) (0-2) % Neut # (Auto) (6012-1960) /uL Lymph # (Auto) (8033-6873) /uL [place] # (Auto) (0-900) /uL Eos # (Auto) (0-450) /uL Baso # (Auto) (0-100) /uL Sodium (137-145) mmol/L Potassium (3.4-5.1) mmol/L Chloride (98-107) mmol/L Carbon Dioxide (22-32) mmol/L BUN (7-17) mg/dL Creatinine (0.52-1.04) mg/dL Estimated GFR (>60) mL/min BUN/Creatinine Ratio (6-22) Glucose (70-100) mg/dL Lactate 1.9 (0.7-2.1) mmol/L Calcium (8.4-10.2) mg/dL Total Bilirubin (0.2-1.3) mg/dL AST (14-36) IU/L ALT (<35) IU/L Alkaline Phosphatase (38-126) U/L Total Protein (6.3-8.2) g/dL Albumin (3.5-5.0) g/dL Globulin (1.7-4.1) g/dL Albumin/Globulin Ratio (1.0-2.8) Amylase (30-110) U/L Lipase (23-300) U/L HCG, Quant mIU/mL Urine RBC (0-5/HPF) Urine WBC (0-5/HPF) Ur Squamous Epith Cells (0-5/HPF) Urine Bacteria (None) Ur Culture Indicated? Micro UA Comment Point of care testing: Point of Care Testing Test Results Positive Urine Dip Bedside Urine Glucose Negative Bedside Urine Bilirubin - Negative Bedside Urine Ketone +/- 5 Urine Specific [place] 1.025 Bedside Urine Occult Blood +/- Bedside Urine pH 6.0 Bedside Urine Protein + 30 Bedside Urine Urobilinogen +/- 1mg Bedside Urine Nitrite + Positive Bedside Urine Leukocytes +/- 15 Esterase MDM Narrative Medical decision making narrative: Patient case was discussed with myself. Patient was does not have any obstructive symptoms at this time. She was having some leakage around her gastric tube of stool. She is not an option for CT because she is . Ultrasound was obtained and does show an intrauterine sac. There was discussion about possibility of MRI and risks versus benefits but she prefers to hold off at this point. Appears she may have UTI was placed on Keflex. She did have a large stool after some magnesium citrate in the department and the leakage around her tube stopped. Strict return precautions were discussed and plan for return if any complications. Discharge Plan Departure Patient Disposition: Home Clinical Impression: Abdominal pain Urinary tract infection Qualifiers: Urinary tract infection type: site unspecified Hematuria presence: without hematuria Qualified Code(s): N39.0 - Urinary tract infection, site not specified Constipation Qualifiers: Constipation type: unspecified constipation type Qualified Code(s): K59.00 - Constipation, unspecified Discharge Date/Time: 11/26/19 18:46 Instructions: Constipation (Alternative Therapy), DI for Urinary Tract Infection (UTI), DI for Constipation, DI for Abdominal Pain -- Early Activity Restrictions/Additional Instructions: Thank you for trusting us with your care today. Please follow-up with primary care provider next few days. I also suggest following up with her OBGYN as well as your GI doctor. I have given you a prescription for an antibiotic for urinary tract infection. Please take the whole course. If give to change antibiotics given the urine culture, we will call you. These could result in 2-3 days. As I discussed, please stay on top bowel movements and be sure that you are not becoming constipated Please come back to the emergency department for any acute concerns such as abdominal pain with fever, inability keep down fluids etcetera Prescriptions: New cephalexin 500 mg capsule 500 mg PO BID Qty: 14 RF: 0 Referrals: John Thorne ARNP [[facility]] -
[2019-11-26] MEDS: ONDANSETRON 4 MG/2 ML INJ IV ×2 (14:25→17:00)
[2019-11-26] MEDS: SODIUM CHLORIDE 0.9% 1,000 ML 1000 ML IV (14:25)
[2019-11-26 14:31] LABS: Add Manual Diff / Slide Review NO; Basophils Absolute Auto 0 /uL (0-100); Basophils Percent Auto 0.3 % (0-2); Eosinophils Absolute Auto 200 /uL (0-450); Eosinophils Percent Auto 2.7 % (2-4); Hematocrit 41.9 % (36-46); Hemoglobin 13.9 g/dL (12.0-16.0); Lymphocytes Absolute Auto 1700 /uL (1100-4500); Lymphocytes Percent Auto 21.4 % (25-40); Mean Corpuscular HGB Conc 33.1 % (30-36); Mean Corpuscular Hemoglobin 26.6 PG (26-34); Mean Corpuscular Volume 80.3 fL (80-100); Monocytes Absolute Auto 400 /uL (0-900); Neutrophils Absolute Auto 5800 /uL (1500-7000); Neutrophils Percent Auto 70.6 % (50-75); Platelet Count 346 X10^3/uL (150-400); Red Blood Cell Count 5.22 X10^6/uL (4.0-5.2); Red Cell Distribution Width 14.5 % (11.6-14.8); White Blood Cell Count 8.1 X10^3/uL (4.5-11.0)
[2019-11-26 14:36] LABS: Alanine Aminotransferase 98 IU/L (<35); Albumin 4.9 g/dL (3.5-5.0); Albumin Globulin Ratio 1.4 (1.0-2.8); Alkaline Phosphatase 81 U/L (38-126); Amylase 79 U/L (30-110); Aspartate Aminotransferase 70 IU/L (14-36); BUN Creatinine Ratio 8.5 (6-22); Bilirubin Total 0.7 mg/dL (0.2-1.3); Blood Urea Nitrogen 5 mg/dL (7-17); Calcium 9.8 mg/dL (8.4-10.2); Carbon Dioxide 24 mmol/L (22-32); Chloride 104 mmol/L (98-107); Estimated Glomerular Filt Rate > 60.0 mL/min (>60); Globulin 3.5 g/dL (1.7-4.1); Glucose 106 mg/dL (70-100); HEMOLYSIS < 15 (0-50); Lipase 224 U/L (23-300); Potassium 3.7 mmol/L (3.4-5.1); Sodium 139 mmol/L (137-145); Total Protein 8.4 g/dL (6.3-8.2)
[2019-11-26 14:37] LABS: Bacteria Urine Many (>30); RBC Urine 0-1/HPF (0-5/HPF); Squamous Epithelial Cell Urine >30 /HPF (0-5/HPF); WBC Urine 1-5/HPF (0-5/HPF)
--- NOTE | 2019-11-26 14:54 | PC.NURSE ---
gastric tube left lower abdominal, noted leaking large amount of liquid brown stool, provider made aware.
[2019-11-26 14:55] VITALS: BP 119/74; PULSE 119; RESP 18
[2019-11-26 15:08] LABS: Lactate (Lactic Acid) 1.9 mmol/L (0.7-2.1)
--- NOTE | 2019-11-26 15:18 | PC.NURSE ---
left lower gastric tube, continue to be leaking brown liquid stool.
--- NOTE | 2019-11-26 15:42 | DI.US.S_ITS ---
PROCEDURE: US OB <= 14 WEEKS FETUS INDICATIONS: WITH ABDOMINAL PAIN OUTSIDE/PRIOR DATING DATA: Last menstrual period (LMP): 10/21/19. LMP-based estimated date of delivery (LOLITA): 07/27/20. First dating scan (date and location): 11/26/19. Estimated date of delivery (LOLITA) from first dating scan: 07/25/20. TECHNIQUE: Real-time scanning was performed of the fetus and maternal pelvic organs, with image documentation. Endovaginal scanning was also performed to better visualize the fetus and maternal ovaries. COMPARISON: None. FINDINGS: Embryo: A single intrauterine gestational sac is identified with a mean gestational sac diameter of 9 mm, correlating with an estimated gestational age of 5 weeks 3 days. A faint yolk sac appears to be present. However, a pole is not definitely appreciated. No definitive subchorionic hemorrhage is appreciated. Maternal organs: Ovaries appear to be grossly within normal limits. Limited images through the kidneys demonstrate no hydronephrosis. IMPRESSION: 1. Single intrauterine gestational sac has an estimated gestational age of 5 weeks 3 days (sonographic LOLITA 07/25/20). 2. A pole is not yet visualized, which is not unusual for the size of the gestational sac. A followup pelvic ultrasound in 1-2 weeks would be helpful to document viability. Dictated by: Vamsi Ruth M.D. on 11/26/2019 at 16:40 Approved by: Vamsi Ruth M.D. on 11/26/2019 at 16:43
[2019-11-26] MEDS: MAGNESIUM CITRATE 300 ML SOLUTION PO (16:00)
[2019-11-26 17:19] VITALS: BP 113/68; PULSE 85; RESP 18; O2SAT 99
--- NOTE | 2019-11-26 17:39 | PC.NURSE ---
report was able to move hard stool and abdominal feeling better. urine obtained, cloudy yellow urine sent to lab.
[2019-11-26] MEDS: cephALEXin 250 MG CAPSULE 500 MG PO (18:02)
== END 2019-11-26 18:46 | disposition home or self-care (01) ==
PROVIDERS: Emergency Provider Nurse Practitioner Family
DX: O26.891 Other specified pregnancy related conditions, first trimester (principal); N39.0 Urinary tract infection, site not specified; R10.84 Generalized abdominal pain; K59.00 Constipation, unspecified; Z3A.01 Less than 8 weeks gestation of pregnancy; T83.9XXA Unspecified complication of genitourinary prosthetic device, implant and graft, initial encounter
CPT/HCPCS: 36415; 76801; 80053; 81003; 81015; 81025; 82150; 83605; 83690; 84702; 85025; 87077; 87086; 87186; 96361; 96374; 96376; 99284; 99285; J2405

== ENCOUNTER → 2020-04-05 14:53 | Outpatient (CLI) | payer OTHER, SELFPAY ==
--- NOTE | 2020-04-05 | DI.MRI.S_ITS ---
PROCEDURE: MR LUMBAR SPINE WO CON INDICATIONS: Dorsalgia, unspecified TECHNIQUE: Noncontrast sagittal T1 spin echo and T2 fast echo, sagittal STIR, axial T1 and T2 fast spin echo through the lumbar spine. In cases with scoliosis, additional coronal T2 fast spin echo may be performed. COMPARISON: [facility], CR, XR LUMBAR SPINE WITH OLBIQUES PLUS FLEXION EXTENSION, 04/01/2020, 13:41. Outside Film, CT, CT ABDOMEN PELVIS WITHOUT CONTRAST, 12/11/2019, 11:10. FINDINGS: Image quality: Excellent. Alignment and Curvature: Mild levoconvex scoliotic curvature is noted. No focal AP alignment abnormality is seen. Bone Marrow: Marrow is of normal overall signal. No acute vertebral body compression fractures. Spinal Cord: Conus medullaris terminates at the L1 level. Visualized cord demonstrates normal signal and size. Paraspinous Soft Tissues: No paravertebral masses. T12-L1: Normal appearance. L1-L2: Normal appearance. L2-L3: Normal appearance. L3-L4: Normal appearance. L4-L5: Normal appearance. L5-S1: Normal appearance. IMPRESSION: No significant lumbar spine abnormality is seen. A prominent rectum is seen, which is better demonstrated on the prior CT, with a history of postoperative change. Dictated by: Franc Ziegler M.D. on 04/05/2020 at 14:50 Approved by: Franc Ziegler M.D. on 04/05/2020 at 14:53
== END ==
PROVIDERS: Referring Provider Physical Medicine & Rehabilitation Pain Medicine; Visit Provider Physical Medicine & Rehabilitation Pain Medicine
DX: M54.9 Dorsalgia, unspecified (principal)
CPT/HCPCS: 72148

== ENCOUNTER 2020-06-13 14:59 | Emergency (ER) | payer OTHER, SELFPAY ==
[2020-06-13 15:03] VITALS: BP 132/89; PULSE 112; RESP 18; TEMP 36.9; O2SAT 98; BMI 24.2
--- NOTE | 2020-06-13 16:12 | PC.NURSE ---
Unable to locate pt in lobby
--- NOTE | 2020-06-13 16:26 | PC.NURSE ---
Unable to locate in lobby
== END 2020-06-13 16:29 | disposition left against medical advice (07) ==
CPT/HCPCS: 99281

== ENCOUNTER 2020-07-25 18:15 | Emergency (ER) | payer OTHER, SELFPAY ==
[2020-07-25 18:21] VITALS: BMI 25.0
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
--- NOTE | 2020-07-25 18:57 | PC.NURSE ---
Pt lying quietly on gurney in room
[2020-07-25 18:58] VITALS: BP 120/72; PULSE 104; RESP 14; TEMP 36.8; O2SAT 100
--- NOTE | 2020-07-25 19:01 | PC.NURSE ---
Pt on phone in room. Pt is crying during conversation
[2020-07-25 19:11] LABS: Add Manual Diff / Slide Review NO; Basophils Absolute Auto 0 /uL (0-100); Basophils Percent Auto 0.4 % (0-2); Eosinophils Absolute Auto 100 /uL (0-450); Eosinophils Percent Auto 1.4 % (2-4); Hematocrit 42.7 % (36-46); Lymphocytes Absolute Auto 1900 /uL (1100-4500); Lymphocytes Percent Auto 18.7 % (25-40); Mean Corpuscular HGB Conc 32.7 % (30-36); Mean Corpuscular Hemoglobin 27.4 PG (26-34); Mean Corpuscular Volume 83.5 fL (80-100); Monocytes Absolute Auto 600 /uL (0-900); Monocytes Percent Auto 5.6 % (3-14); Neutrophils Absolute Auto 7700 /uL (1500-7000); Neutrophils Percent Auto 73.9 % (50-75); Platelet Count 323 X10^3/uL (150-400); Red Blood Cell Count 5.11 X10^6/uL (4.0-5.2); Red Cell Distribution Width 13.6 % (11.6-14.8); White Blood Cell Count 10.4 X10^3/uL (4.5-11.0)
[2020-07-25 19:26] LABS: Alanine Aminotransferase 118 IU/L (<35); Albumin 4.6 g/dL (3.5-5.0); Albumin Globulin Ratio 1.4 (1.0-2.8); Alkaline Phosphatase 66 U/L (38-126); Aspartate Aminotransferase 76 IU/L (14-36); BUN Creatinine Ratio 14.8 (6-22); Bilirubin Total 0.9 mg/dL (0.2-1.3); Blood Urea Nitrogen 9 mg/dL (7-17); Calcium 9.5 mg/dL (8.4-10.2); Carbon Dioxide 27 mmol/L (22-32); Chloride 105 mmol/L (98-107); Estimated Glomerular Filt Rate > 60.0 mL/min (>60); Globulin 3.3 g/dL (1.7-4.1); Glucose 97 mg/dL (70-100); HEMOLYSIS < 15 (0-50); Potassium 3.9 mmol/L (3.4-5.1); Sodium 138 mmol/L (137-145); Total Protein 7.9 g/dL (6.3-8.2)
[2020-07-25 19:34] LABS: COVID19 -Nasal RAPID Negative (Negative)
--- NOTE | 2020-07-25 20:02 | PC.NURSE ---
SUPERVISOR GROWER in room with Pt
[2020-07-25 20:03] LABS: Thyroid Stimulating Hormone 0.667 uIU/mL (0.47-4.68)
[2020-07-25 20:14] LABS: Ur Creatinine Normal (Normal); Ur Specific Gravity Normal (Normal); Urine pH Normal (Normal)
[2020-07-25 20:15] LABS: UR Morphine/Opiate cutoff 300 Negative (Negative); Urine Amphetamines Negative (Negative); Urine Barbiturates Negative (Negative); Urine Benzodiazepines Negative (Negative); Urine Cocaine Negative (Negative); Urine MDMA Negative (Negative); Urine Methadone Negative (Negative); Urine Methamphetamines Negative (Negative); Urine Oxycodone Negative (Negative); Urine Phencyclidine Negative (Negative); Urine Tetrahydrocannabinol Negative (Negative); Urine Tricyclic Antidepressant Negative (Negative)
--- NOTE | 2020-07-25 20:17 | PC.NURSE ---
Pt sitting up on gurmargaret talking with SUPERVISOR FIREARMS
--- NOTE | 2020-07-25 20:46 | PC.NURSE ---
INTEGRITY ENGINEER has just left the room to speak with ED provider. Pt is calm and lying on gurney
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
--- NOTE | 2020-07-25 21:50 | CM.SWNOTE ---
TUMBLING BARREL PAINTER note Following assessment, TUMBLING BARREL PAINTER contacts [facility] seeking placement. [facility] unable to accept due to patient's use of colostomy bags. TUMBLING BARREL PAINTER contacts [facility] who report no open beds. TUMBLING BARREL PAINTER informs patient of this, and patient agreeable to pursue bed at [facility] and remain in ED overnight. TUMBLING BARREL PAINTER explains to patient that a DCR will be contacted prior to d/c from if patient decides she wants to leave prior to transfer. Patient indicates understanding and states she is willing to stay. TUMBLING BARREL PAINTER faxes clinical packet to [facility] and updates Dr. Byrnes, GIL Rivera, GIL De [facility], patient amish Sidhu, and SIN Gibbons. TUMBLING BARREL PAINTER places clinical packet in paper chart after faxing it. At this time, it remains the recommendation of this TUMBLING BARREL PAINTER that patient receive a DCR evaluation prior to d/c if requesting to d/c before transfer to [facility]. TUMBLING BARREL PAINTER discusses this with Dr. Byrnes who indicates agreement. Pl: Pursue inpatient bed for patient at [facility]. FRED Kaufman
[2020-07-25] MEDS: clonazePAM 0.5 MG TABLET PO (22:22)
--- NOTE | 2020-07-25 23:00 | PC.NURSE ---
Addendum entered by Radha Caraballo R.N. 07/26/20 02:08: from [facility]. Pt resting in bed. Phone in hand with it contracted as long as the phone is not causing a disturbance she is allowed to keep it. Pt has finished 100% of her dinner. Original Note: Assumed pt care at 2300
[2020-07-25] MEDS: MIRTAZAPINE 7.5 MG TABLET PO (23:32)
[2020-07-26] MEDS: MIRTAZAPINE 7.5 MG TABLET PO (03:05)
--- NOTE | 2020-07-26 06:16 | PC.NURSE ---
[facility] was called and their practitioner arrives at 0700 and then they will begin reviewing charts.
--- NOTE | 2020-07-26 07:52 | PC.NURSE ---
Annika from [facility] called to say they cannot accept the patient. Annika explained that the pt has been seen at [facility] multiple times and states that the pt always denies everything, which keeps insurance during her assessment from allowing the patients stay. phone number to reach Annika if necessary is [phone]
--- NOTE | 2020-07-26 08:31 | PC.NURSE ---
Soila with [facility] is visiting with patient to discuss possible inpatient admissions
[2020-07-26 13:53] VITALS: BP 119/83; PULSE 77; RESP 18; O2SAT 99
--- NOTE | 2020-07-26 14:39 | CM.SWNOTE ---
[employer] note [employer] reviews notes from overnight and staffs with Dr. Kaufman and [place] planning [employer]P[facility] HELPER MAINTENANCENorris Hopper. Dr. Kaufman reports that patient has slept most of the morning and has been stable overnight. [employer]TENA[employer] Ruchi reports that [facility] has declined and [facility] has declined. [employer]TENAN[employer] Ruchi reports that patient is currently pending at [facility]. [employer] receives call from Jasmyn at [facility] in [place] who asks if patient is aware that she will be billed for stay if she denies services and requests that [employer] asks if patient is OK if she has a roommate. [employer] enters room and discusses these with patient. Patient states she is OK with roommate and indicates understanding that there will be a bill for her stay if she denies services. [employer] calls Jasmyn back and informs her of information above. Jasmyn is reporting that she is continuing to review the chart, [employer] gives Jasmyn [phone] for call back with final decision. Jasmyn calls [employer] back and informs [employer] that they are declining patient due to patient?s ?ambivalence? regarding her suicide ideation. [employer] enters room and discusses this with patient. Patient presents as more relaxed in this visit than previous interaction. Patient indicates understanding. [employer] asks patient how she would like to proceed and patient states ?I just want to go home?. Patient denies SI/HI multiple times during this brief interaction. When asked about safety at home, patient states she will be staying with her friend and will not be returning to home with her at this time. Patient indicates understanding that she can always call 911 and return to ED if she is experiencing SI/HI or mental health crises. [employer] offers to arrange [facility] follow up calls for patient and patient agrees. [employer] updates Dr. Kaufman, who indicates understanding and agreement with plan. [employer] calls crisis line and arranges for [facility] follow up call for following day. Plan: Patient to d/c to friend?s home. FRED Kaufman
[2020-07-26 15:05] VITALS: BP 117/75; PULSE 82; RESP 18; O2SAT 100
== END 2020-07-26 15:06 | disposition home or self-care (01) ==
PROVIDERS: Emergency Medicine; Emergency Provider Emergency Medicine
DX: R45.851 Suicidal ideations (principal); F32.9 Major depressive disorder, single episode, unspecified; Z20.828 Contact with and (suspected) exposure to other viral communicable diseases
CPT/HCPCS: 36415; 80053; 80305; 81025; 84443; 85025; 87635; 93005; 93010; 99284

== ENCOUNTER 2020-07-27 17:13 | Emergency (ER) | payer OTHER, SELFPAY ==
[2020-07-27 17:19] VITALS: BP 132/98; PULSE 108; RESP 16; TEMP 37.2; O2SAT 99; BMI 25.0
--- NOTE | 2020-07-27 17:39 | PC.NURSE ---
Patient changed into paper clothing and all personal items removed from room and locked in patient belonging cabinet. Patient remains possession of cell phone but instructed if it serves as source of agitation will have to be removed. Patient confirmed understanding. 1:1 observation initiated with sitter outside room.
[2020-07-27 18:15] LABS: Add Manual Diff / Slide Review NO; Basophils Absolute Auto 0 /uL (0-100); Basophils Percent Auto 0.5 % (0-2); Eosinophils Absolute Auto 100 /uL (0-450); Eosinophils Percent Auto 1.3 % (2-4); Hematocrit 41.7 % (36-46); Hemoglobin 13.9 g/dL (12.0-16.0); Lymphocytes Absolute Auto 2000 /uL (1100-4500); Lymphocytes Percent Auto 22.6 % (25-40); Mean Corpuscular HGB Conc 33.4 % (30-36); Mean Corpuscular Hemoglobin 27.8 PG (26-34); Mean Corpuscular Volume 83.1 fL (80-100); Monocytes Absolute Auto 400 /uL (0-900); Monocytes Percent Auto 4.8 % (3-14); Neutrophils Absolute Auto 6300 /uL (1500-7000); Neutrophils Percent Auto 70.8 % (50-75); Platelet Count 283 X10^3/uL (150-400); Red Blood Cell Count 5.01 X10^6/uL (4.0-5.2); Red Cell Distribution Width 13.2 % (11.6-14.8); White Blood Cell Count 8.9 X10^3/uL (4.5-11.0)
[2020-07-27 18:32] LABS: Acetaminophen < 10 ug/mL (10-30); Alanine Aminotransferase 94 IU/L (<35); Albumin 4.6 g/dL (3.5-5.0); Albumin Globulin Ratio 1.4 (1.0-2.8); Alkaline Phosphatase 61 U/L (38-126); Aspartate Aminotransferase 52 IU/L (14-36); Bilirubin Total 0.8 mg/dL (0.2-1.3); Blood Urea Nitrogen 12 mg/dL (7-17); Calcium 9.6 mg/dL (8.4-10.2); Carbon Dioxide 27 mmol/L (22-32); Chloride 107 mmol/L (98-107); Estimated Glomerular Filt Rate > 60.0 mL/min (>60); Ethanol (ETOH) < 10 mg/dL; Globulin 3.4 g/dL (1.7-4.1); Glucose 91 mg/dL (70-100); HEMOLYSIS < 15 (0-50); Potassium 4.3 mmol/L (3.4-5.1); Salicylate < 1.0 mg/dL (<20); Sodium 138 mmol/L (137-145)
--- NOTE | 2020-07-27 18:40 | PC.NURSE ---
Patient's friend visiting and at bedside with patient permission. Patient lying in bed talking and laughing with friend.
--- NOTE | 2020-07-27 18:45 | PC.NURSE ---
Pt friend in room with Pt
--- NOTE | 2020-07-27 19:00 | ED_ITS ---
HPI - Psych <RENETTA Huang - Last Filed: 07/27/20 20:04> General Chief Complaint: Psychiatric Symptoms Stated Complaint: Suicidal Ideation Time Seen by Provider: 07/27/20 17:17 Source: EMS Mode of arrival: EMS Limitations: no limitations History of Present Illness HPI Narrative: This is a 19-year-old female, nonsmoker, who has past medical history significant for suicidal ideation, depression, bipolar and anxiety presents to ED with [facility] with chief complain of recurring suicidal ideations. Patient was brought in from home. She talked to [facility] over the phone and they contacted EMS to bring patient to emergency room after she mentioned wishing to jump off the bridge and don't want to be around in this world. Patient states she had not contacted EMS. Patient reports racing thoughts of hanging herself. This is her 2nd visit to this emergency department this week. Previously, she thought about hurting herself with a knife. Patient states she is going through a divorce and is angry about this and is not sure why her wants a divorce and to break up a family. According to the patient, her wants to take her son away from her which she is afraid of. Patient has been with her for 7 years and has been for 1 year. Patient and her are both from [place] and they have 3-year-old son together. 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 Patient's spouse has not been deployed. Patient denies physical altercation and reports feels safe at home. Patient reports feeling lonely and wanted to talk to someone so contacted [facility] today. Patient denies using illicit drugs or having alcohol drinks today. Patient takes clonazepam 0.5 mg daily and takes total 15 mg of mirtazapine at night as scheduled medications. Patient denies previous history of suicidal attempts. Patient was hospitalized in [facility] for depression in the past. Patient states her does not give emotional support or shows concerns for her well-being. She feels hurt when he just laughs at her. They tried marriage counseling but this has not been working. Patient's recently removed all therefore toes together from social media which hurts her feeling. 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 Patient asked not to share information with her when he calls. When she was here couple of days ago she fell normal longer suicidal and was discharged to home and stating she is not around her she feels better. Related Data Home Medications Medication Instructions Recorded Confirmed clonazepam 0.5 mg PO BEDTIME 07/27/20 07/28/20 mirtazapine [Remeron] 15 mg PO BEDTIME 07/28/20 07/28/20 Allergies Allergy/AdvReac Type Severity Reaction Status Date / Time iodine Allergy Rash Verified 07/25/20 18:24 contrast Allergy Rash Uncoded 07/25/20 18:24 Review of Systems <RENETTA Huang - Last Filed: 07/27/20 20:04> Review of Systems Narrative: General: Denies fever, chills, fatigue, malaise, sweats. HEENT: Denies sinus pain, ear pain, sore throat, difficulty swallowing, dizziness. Respiratory: Denies dyspnea, cough, wheezing, hemoptysis, sputum. Cardiovascular: Denies chest pain, palpitations, orthopnea, edema. Gastrointestinal: Denies nausea, vomiting, abdominal pain, diarrhea, constipation, melena. : Denies dysuria, frequency, incontinence, hematuria, urinary retention. Neurologic: Denies weakness, headache, numbness, change in speech, confusion, seizures, incoordination. Psychiatric: See HPI Patient History <RENETTA Huang - Last Filed: 07/27/20 20:04> Medical History Anxiety Depression Imperforate anus Social History Smoking Status: Never smoker Smoking Status: Never smoker Substance Use Type: marijuana Exam <RENETTA Huang - Last Filed: 07/27/20 20:04> Narrative Exam Narrative: General appearance: well developed, well nourished, in no acute distress, tearful during interview. Head: normocephalic, atraumatic, no scalp lesions, non-tender. ENT: Hearing grossly intact. Airway patent. Neck/Thyroid: neck supple, full range of motion, no visible masses or meningeal signs. No JVD, non-tender without lymphadenopathy. Skin: no suspicious rashes, lesions over visible areas. Warm and dry and appropriate color for ethnicity. Heart: no clubbing, no cyanosis, no edema. Lungs: Breathing even and unlabored. No stridor. No accessory muscles used. Able to speak in full sentences. Chest: normal shape and expansion. Abdomen: non-obese, non-distended. Neurologic: alert and oriented. Cognitive exam, STUDENT FINANCE ADVISOR and PNS grossly intact on informal exam. Initial Vital Signs Initial Vital Signs: Vital Signs Temperature 98.9 F 07/27/20 17:19 Pulse Rate 108 H 07/27/20 17:19 Respiratory Rate 16 07/27/20 17:19 Blood Pressure 132/98 H 07/27/20 17:19 Pulse Oximetry 99 07/27/20 17:19 Psych Appearance: grossly normal Mental Status: mental status grossly normal Speech and Movement: speech and movement normal Mood: congruent mood Affect: sad Attitude: cooperative and guarded Thought Process: normal Thought Content: suicidality Judgment: fair <Philippe Nowak DO - Last Filed: 07/29/20 01:39> Initial Vital Signs Initial Vital Signs: Vital Signs Temperature 98.9 F 07/27/20 17:19 Pulse Rate 108 H 07/27/20 17:19 Respiratory Rate 16 07/27/20 17:19 Blood Pressure 132/98 H 07/27/20 17:19 Pulse Oximetry 99 07/27/20 17:19 <Thuy Kaufman DO - Last Filed: 07/28/20 18:09> Initial Vital Signs Initial Vital Signs: Vital Signs Temperature 98.9 F 07/27/20 17:19 Pulse Rate 108 H 07/27/20 17:19 Respiratory Rate 16 07/27/20 17:19 Blood Pressure 132/98 H 07/27/20 17:19 Pulse Oximetry 99 07/27/20 17:19 Scores <RENETTA Huang - Last Filed: 07/27/20 20:04> GCS Ravin coma scale eye opening: Spontaneous Ravin coma scale verbal response: Orientated Ravin coma scale motor response: [place]bey commands [place] coma scale total score: 15 Course <RENETTA Huang - Last Filed: 07/27/20 20:04> Orders Ordered: Discontinued Medications Clonazepam (Clonazepam 0.5 Mg Tablet) 1 mg PO NOW ONE Stop: 07/28/20 00:27 Last Admin: 07/28/20 00:29 Dose: 1 mg Documented by: LILI Mirtazapine (Mirtazapine 15 Mg Tablet) 15 mg PO BEDTIME FLOYD Mirtazapine (Mirtazapine 15 Mg Tablet) 15 mg PO NOW ONE Stop: 07/28/20 00:05 Last Admin: 07/28/20 00:14 Dose: 15 mg Documented by: LILI Vital Signs Vital signs: Vital Signs - 8 hr 07/28/20 12:02 07/28/20 15:13 Pulse Rate 92 H 93 H Respiratory Rate 20 18 Blood Pressure 121/74 105/59 L Pulse Oximetry 98 99 <Philippe Nowak DO - Last Filed: 07/29/20 01:39> Course Course Narrative: I received signout from Arin JACKSON. I have performed independent history and physical. She still has question of desire to hurt herself and doesn't have a good place to go home. Given her second visit this week for same we will keep her over night and get EDUCATION DEPARTMENT REGISTRAR consult. Orders Ordered: Discontinued Medications Clonazepam (Clonazepam 0.5 Mg Tablet) 1 mg PO NOW ONE Stop: 07/28/20 00:27 Last Admin: 07/28/20 00:29 Dose: 1 mg Documented by: MADDISONIN Mirtazapine (Mirtazapine 15 Mg Tablet) 15 mg PO BEDTIME FLOYD Mirtazapine (Mirtazapine 15 Mg Tablet) 15 mg PO NOW ONE Stop: 07/28/20 00:05 Last Admin: 07/28/20 00:14 Dose: 15 mg Documented by: LILI Vital Signs Vital signs: Vital Signs - 8 hr 07/28/20 12:02 07/28/20 15:13 Pulse Rate 92 H 93 H Respiratory Rate 20 18 Blood Pressure 121/74 105/59 L Pulse Oximetry 98 99 <Thuy Kaufman DO - Last Filed: 07/28/20 18:09> Orders Ordered: Discontinued Medications Clonazepam (Clonazepam 0.5 Mg Tablet) 1 mg PO NOW ONE Stop: 07/28/20 00:27 Last Admin: 07/28/20 00:29 Dose: 1 mg Documented by: LILI Mirtazapine (Mirtazapine 15 Mg Tablet) 15 mg PO BEDTIME [facility] Mirtazapine (Mirtazapine 15 Mg Tablet) 15 mg PO NOW ONE Stop: 07/28/20 00:05 Last Admin: 07/28/20 00:14 Dose: 15 mg Documented by: LILI Vital Signs Vital signs: Vital Signs - 8 hr 07/28/20 12:02 07/28/20 15:13 Pulse Rate 92 H 93 H Respiratory Rate 20 18 Blood Pressure 121/74 105/59 L Pulse Oximetry 98 99 MDM - Psych <Dharmesh Mayfield-Jose AntonioRENETTA tuttle - Last Filed: 07/27/20 20:04> Differential Diagnosis Differential diagnosis: Likely suicidal ideation, depression and other (Situatio nal stress) Medical Records Attestation: I reviewed the patient's medical records. Lab Data Result diagrams: 07/27/20 18:05 07/27/20 18:05 Labs: Lab Results 07/27/20 07/27/20 07/27/20 Range/Units 18:05 18:05 18:05 WBC 8.9 (4.5-11.0) X10^3/uL RBC 5.01 (4.0-5.2) X10^6/uL Hgb 13.9 (12.0-16.0) g/dL Hct 41.7 (36-46) % MCV 83.1 (80-100) fL MCH 27.8 (26-34) PG MCHC 33.4 (30-36) % RDW 13.2 (11.6-14.8) % Plt Count 283 (150-400) X10^3/uL Neut % (Auto) 70.8 (50-75) % Lymph % (Auto) 22.6 L (25-40) % Moody % (Auto) 4.8 (3-14) % Eos % (Auto) 1.3 L (2-4) % Baso % (Auto) 0.5 (0-2) % Neut # (Auto) 6300 (7579-5578) /uL Lymph # (Auto) 2000 (1636-7407) /uL Moody # (Auto) 400 (0-900) /uL Eos # (Auto) 100 (0-450) /uL Baso # (Auto) 0 (0-100) /uL Sodium 138 (137-145) mmol/L Potassium 4.3 (3.4-5.1) mmol/L Chloride 107 (98-107) mmol/L Carbon Dioxide 27 (22-32) mmol/L BUN 12 (7-17) mg/dL Creatinine 0.60 (0.52-1.04) mg/dL Estimated GFR > 60.0 (>60) mL/min BUN/Creatinine Ratio 20.0 (6-22) Glucose 91 (70-100) mg/dL Calcium 9.6 (8.4-10.2) mg/dL Total Bilirubin 0.8 (0.2-1.3) mg/dL AST 52 H (14-36) IU/L ALT 94 H (<35) IU/L Alkaline Phosphatase 61 (38-126) U/L Total Protein 8.0 (6.3-8.2) g/dL Albumin 4.6 (3.5-5.0) g/dL Globulin 3.4 (1.7-4.1) g/dL Albumin/Globulin Ratio 1.4 (1.0-2.8) TSH 0.733 (0.47-4.68) uIU/mL Urine RBC (0-5/HPF) Urine WBC (0-5/HPF) Ur Squamous Epith Cells (0-5/HPF) Urine Bacteria (None) Ur Culture Indicated? Salicylates < 1.0 (<20) mg/dL U Opiates 300ng/mL cut (Negative) Ur Oxycodone Screen (Negative) Urine Methadone Screen (Negative) Acetaminophen < 10 L (10-30) ug/mL Ur Barbiturates Screen (Negative) U Tricyclic Antidepress (Negative) Ur Phencyclidine Scrn (Negative) Ur Amphetamines Screen (Negative) U Methamphetamines Scrn (Negative) Ur MDMA Scrn (Ecstasy) (Negative) U Benzodiazepines Scrn (Negative) Urine Cocaine Screen (Negative) U Marijuana (THC) Screen (Negative) Ethyl Alcohol < 10 ( - 10) mg/dL 07/27/20 07/27/20 Range/Units 23:49 23:49 WBC (4.5-11.0) X10^3/uL RBC (4.0-5.2) X10^6/uL Hgb (12.0-16.0) g/dL Hct (36-46) % MCV (80-100) fL MCH (26-34) PG MCHC (30-36) % RDW (11.6-14.8) % Plt Count (150-400) X10^3/uL Neut % (Auto) (50-75) % Lymph % (Auto) (25-40) % Moody % (Auto) (3-14) % Eos % (Auto) (2-4) % Baso % (Auto) (0-2) % Neut # (Auto) (9278-5865) /uL Lymph # (Auto) (0609-3117) /uL Moody # (Auto) (0-900) /uL Eos # (Auto) (0-450) /uL Baso # (Auto) (0-100) /uL Sodium (137-145) mmol/L Potassium (3.4-5.1) mmol/L Chloride (98-107) mmol/L Carbon Dioxide (22-32) mmol/L BUN (7-17) mg/dL Creatinine (0.52-1.04) mg/dL Estimated GFR (>60) mL/min BUN/Creatinine Ratio (6-22) Glucose (70-100) mg/dL Calcium (8.4-10.2) mg/dL Total Bilirubin (0.2-1.3) mg/dL AST (14-36) IU/L ALT (<35) IU/L Alkaline Phosphatase (38-126) U/L Total Protein (6.3-8.2) g/dL Albumin (3.5-5.0) g/dL Globulin (1.7-4.1) g/dL Albumin/Globulin Ratio (1.0-2.8) TSH (0.47-4.68) uIU/mL Urine RBC 1-5/hpf (0-5/HPF) Urine WBC 1-5/hpf (0-5/HPF) Ur Squamous Epith Cells 1-5 /hpf D (0-5/HPF) Urine Bacteria Many (>30) H (None) Ur Culture Indicated? Specimen cultured Salicylates (<20) mg/dL U Opiates 300ng/mL cut Negative (Negative) Ur Oxycodone Screen Negative (Negative) Urine Methadone Screen Negative (Negative) Acetaminophen (10-30) ug/mL Ur Barbiturates Screen Negative (Negative) U Tricyclic Antidepress Negative (Negative) Ur Phencyclidine Scrn Negative (Negative) Ur Amphetamines Screen Negative (Negative) U Methamphetamines Scrn Negative (Negative) Ur MDMA Scrn (Ecstasy) Negative (Negative) U Benzodiazepines Scrn Negative (Negative) Urine Cocaine Screen Negative (Negative) U Marijuana (THC) Screen Negative (Negative) Ethyl Alcohol ( - 10) mg/dL Point of Care Testing Test Results Negative Urine Dip Bedside Urine Glucose Negative Bedside Urine Bilirubin - Negative Bedside Urine Ketone - Negative Urine Specific [place] 1.025 Bedside Urine Occult Blood +/- Bedside Urine pH 6.0 Bedside Urine Protein +/- 15 Bedside Urine Urobilinogen - Negative Bedside Urine Nitrite + Positive Bedside Urine Leukocytes - Negative Esterase MDM Narrative Medical decision making narrative: This is a 19-year-old female who return to ED with recurring suicidal ideation with a plan by hanging herself and voluntarily seeking help. She contacted [facility] via phone call and EMS was dispatched when she expressed not wanting to be around and this word and wishing to jump off bridge. Patient is currently going through marital difficulty and her wants a divorce. They have a 3-year-old son together. She was here 2 days ago with suicidal ideation using a knief but discharged to home after transfer request was at [facility], [facility], and [facility]. GCS 15, she is cooperative. Lab test shows slightly elevated AST and ALT and this has been her trend from previous labs. She denies using alcohol. ETOH is negative. Tylenol and salicylate level are negative. Patient does not have any abdominal pain, nausea or vomiting. Waiting for urine sample to complete medical clearance. The patient's case has been signed out to Dr. Nowak. <Philippe Nowak, DO - Last Filed: 07/29/20 01:39> Lab Data Labs: Lab Results 07/27/20 07/27/20 07/27/20 Range/Units 18:05 18:05 18:05 WBC 8.9 (4.5-11.0) X10^3/uL RBC 5.01 (4.0-5.2) X10^6/uL Hgb 13.9 (12.0-16.0) g/dL Hct 41.7 (36-46) % MCV 83.1 (80-100) fL MCH 27.8 (26-34) PG MCHC 33.4 (30-36) % RDW 13.2 (11.6-14.8) % Plt Count 283 (150-400) X10^3/uL Neut % (Auto) 70.8 (50-75) % Lymph % (Auto) 22.6 L (25-40) % Moody % (Auto) 4.8 (3-14) % Eos % (Auto) 1.3 L (2-4) % Baso % (Auto) 0.5 (0-2) % Neut # (Auto) 6300 (5342-2779) /uL Lymph # (Auto) 2000 (3563-5415) /uL Moody # (Auto) 400 (0-900) /uL Eos # (Auto) 100 (0-450) /uL Baso # (Auto) 0 (0-100) /uL Sodium 138 (137-145) mmol/L Potassium 4.3 (3.4-5.1) mmol/L Chloride 107 (98-107) mmol/L Carbon Dioxide 27 (22-32) mmol/L BUN 12 (7-17) mg/dL Creatinine 0.60 (0.52-1.04) mg/dL Estimated GFR > 60.0 (>60) mL/min BUN/Creatinine Ratio 20.0 (6-22) Glucose 91 (70-100) mg/dL Calcium 9.6 (8.4-10.2) mg/dL Total Bilirubin 0.8 (0.2-1.3) mg/dL AST 52 H (14-36) IU/L ALT 94 H (<35) IU/L Alkaline Phosphatase 61 (38-126) U/L Total Protein 8.0 (6.3-8.2) g/dL Albumin 4.6 (3.5-5.0) g/dL Globulin 3.4 (1.7-4.1) g/dL Albumin/Globulin Ratio 1.4 (1.0-2.8) TSH 0.733 (0.47-4.68) uIU/mL Urine RBC (0-5/HPF) Urine WBC (0-5/HPF) Ur Squamous Epith Cells (0-5/HPF) Urine Bacteria (None) Ur Culture Indicated? Salicylates < 1.0 (<20) mg/dL U Opiates 300ng/mL cut (Negative) Ur Oxycodone Screen (Negative) Urine Methadone Screen (Negative) Acetaminophen < 10 L (10-30) ug/mL Ur Barbiturates Screen (Negative) U Tricyclic Antidepress (Negative) Ur Phencyclidine Scrn (Negative) Ur Amphetamines Screen (Negative) U Methamphetamines Scrn (Negative) Ur MDMA Scrn (Ecstasy) (Negative) U Benzodiazepines Scrn (Negative) Urine Cocaine Screen (Negative) U Marijuana (THC) Screen (Negative) Ethyl Alcohol < 10 ( - 10) mg/dL 07/27/20 07/27/20 Range/Units 23:49 23:49 WBC (4.5-11.0) X10^3/uL RBC (4.0-5.2) X10^6/uL Hgb (12.0-16.0) g/dL Hct (36-46) % MCV (80-100) fL MCH (26-34) PG MCHC (30-36) % RDW (11.6-14.8) % Plt Count (150-400) X10^3/uL Neut % (Auto) (50-75) % Lymph % (Auto) (25-40) % Moody % (Auto) (3-14) % Eos % (Auto) (2-4) % Baso % (Auto) (0-2) % Neut # (Auto) (1871-6480) /uL Lymph # (Auto) (0113-1370) /uL Moody # (Auto) (0-900) /uL Eos # (Auto) (0-450) /uL Baso # (Auto) (0-100) /uL Sodium (137-145) mmol/L Potassium (3.4-5.1) mmol/L Chloride (98-107) mmol/L Carbon Dioxide (22-32) mmol/L BUN (7-17) mg/dL Creatinine (0.52-1.04) mg/dL Estimated GFR (>60) mL/min BUN/Creatinine Ratio (6-22) Glucose (70-100) mg/dL Calcium (8.4-10.2) mg/dL Total Bilirubin (0.2-1.3) mg/dL AST (14-36) IU/L ALT (<35) IU/L Alkaline Phosphatase (38-126) U/L Total Protein (6.3-8.2) g/dL Albumin (3.5-5.0) g/dL Globulin (1.7-4.1) g/dL Albumin/Globulin Ratio (1.0-2.8) TSH (0.47-4.68) uIU/mL Urine RBC 1-5/hpf (0-5/HPF) Urine WBC 1-5/hpf (0-5/HPF) Ur Squamous Epith Cells 1-5 /hpf D (0-5/HPF) Urine Bacteria Many (>30) H (None) Ur Culture Indicated? Specimen cultured Salicylates (<20) mg/dL U Opiates 300ng/mL cut Negative (Negative) Ur Oxycodone Screen Negative (Negative) Urine Methadone Screen Negative (Negative) Acetaminophen (10-30) ug/mL Ur Barbiturates Screen Negative (Negative) U Tricyclic Antidepress Negative (Negative) Ur Phencyclidine Scrn Negative (Negative) Ur Amphetamines Screen Negative (Negative) U Methamphetamines Scrn Negative (Negative) Ur MDMA Scrn (Ecstasy) Negative (Negative) U Benzodiazepines Scrn Negative (Negative) Urine Cocaine Screen Negative (Negative) U Marijuana (THC) Screen Negative (Negative) Ethyl Alcohol ( - 10) mg/dL Point of Care Testing Test Results Negative Urine Dip Bedside Urine Glucose Negative Bedside Urine Bilirubin - Negative Bedside Urine Ketone - Negative Urine Specific [place] 1.025 Bedside Urine Occult Blood +/- Bedside Urine pH 6.0 Bedside Urine Protein +/- 15 Bedside Urine Urobilinogen - Negative Bedside Urine Nitrite + Positive Bedside Urine Leukocytes - Negative Esterase <Thuy Kaufman, DO - Last Filed: 07/28/20 18:09> Lab Data Attestation: I reviewed the patient's lab results. Labs: Lab Results 07/27/20 07/27/20 07/27/20 Range/Units 18:05 18:05 18:05 WBC 8.9 (4.5-11.0) X10^3/uL RBC 5.01 (4.0-5.2) X10^6/uL Hgb 13.9 (12.0-16.0) g/dL Hct 41.7 (36-46) % MCV 83.1 (80-100) fL MCH 27.8 (26-34) PG MCHC 33.4 (30-36) % RDW 13.2 (11.6-14.8) % Plt Count 283 (150-400) X10^3/uL Neut % (Auto) 70.8 (50-75) % Lymph % (Auto) 22.6 L (25-40) % Moody % (Auto) 4.8 (3-14) % Eos % (Auto) 1.3 L (2-4) % Baso % (Auto) 0.5 (0-2) % Neut # (Auto) 6300 (5896-0695) /uL Lymph # (Auto) 2000 (9797-3714) /uL Moody # (Auto) 400 (0-900) /uL Eos # (Auto) 100 (0-450) /uL Baso # (Auto) 0 (0-100) /uL Sodium 138 (137-145) mmol/L Potassium 4.3 (3.4-5.1) mmol/L Chloride 107 (98-107) mmol/L Carbon Dioxide 27 (22-32) mmol/L BUN 12 (7-17) mg/dL Creatinine 0.60 (0.52-1.04) mg/dL Estimated GFR > 60.0 (>60) mL/min BUN/Creatinine Ratio 20.0 (6-22) Glucose 91 (70-100) mg/dL Calcium 9.6 (8.4-10.2) mg/dL Total Bilirubin 0.8 (0.2-1.3) mg/dL AST 52 H (14-36) IU/L ALT 94 H (<35) IU/L Alkaline Phosphatase 61 (38-126) U/L Total Protein 8.0 (6.3-8.2) g/dL Albumin 4.6 (3.5-5.0) g/dL Globulin 3.4 (1.7-4.1) g/dL Albumin/Globulin Ratio 1.4 (1.0-2.8) TSH 0.733 (0.47-4.68) uIU/mL Urine RBC (0-5/HPF) Urine WBC (0-5/HPF) Ur Squamous Epith Cells (0-5/HPF) Urine Bacteria (None) Ur Culture Indicated? Salicylates < 1.0 (<20) mg/dL U Opiates 300ng/mL cut (Negative) Ur Oxycodone Screen (Negative) Urine Methadone Screen (Negative) Acetaminophen < 10 L (10-30) ug/mL Ur Barbiturates Screen (Negative) U Tricyclic Antidepress (Negative) Ur Phencyclidine Scrn (Negative) Ur Amphetamines Screen (Negative) U Methamphetamines Scrn (Negative) Ur MDMA Scrn (Ecstasy) (Negative) U Benzodiazepines Scrn (Negative) Urine Cocaine Screen (Negative) U Marijuana (THC) Screen (Negative) Ethyl Alcohol < 10 ( - 10) mg/dL 07/27/20 07/27/20 Range/Units 23:49 23:49 WBC (4.5-11.0) X10^3/uL RBC (4.0-5.2) X10^6/uL Hgb (12.0-16.0) g/dL Hct (36-46) % MCV (80-100) fL MCH (26-34) PG MCHC (30-36) % RDW (11.6-14.8) % Plt Count (150-400) X10^3/uL Neut % (Auto) (50-75) % Lymph % (Auto) (25-40) % Moody % (Auto) (3-14) % Eos % (Auto) (2-4) % Baso % (Auto) (0-2) % Neut # (Auto) (8909-0956) /uL Lymph # (Auto) (4807-9940) /uL Moody # (Auto) (0-900) /uL Eos # (Auto) (0-450) /uL Baso # (Auto) (0-100) /uL Sodium (137-145) mmol/L Potassium (3.4-5.1) mmol/L Chloride (98-107) mmol/L Carbon Dioxide (22-32) mmol/L BUN (7-17) mg/dL Creatinine (0.52-1.04) mg/dL Estimated GFR (>60) mL/min BUN/Creatinine Ratio (6-22) Glucose (70-100) mg/dL Calcium (8.4-10.2) mg/dL Total Bilirubin (0.2-1.3) mg/dL AST (14-36) IU/L ALT (<35) IU/L Alkaline Phosphatase (38-126) U/L Total Protein (6.3-8.2) g/dL Albumin (3.5-5.0) g/dL Globulin (1.7-4.1) g/dL Albumin/Globulin Ratio (1.0-2.8) TSH (0.47-4.68) uIU/mL Urine RBC 1-5/hpf (0-5/HPF) Urine WBC 1-5/hpf (0-5/HPF) Ur Squamous Epith Cells 1-5 /hpf D (0-5/HPF) Urine Bacteria Many (>30) H (None) Ur Culture Indicated? Specimen cultured Salicylates (<20) mg/dL U Opiates 300ng/mL cut Negative (Negative) Ur Oxycodone Screen Negative (Negative) Urine Methadone Screen Negative (Negative) Acetaminophen (10-30) ug/mL Ur Barbiturates Screen Negative (Negative) U Tricyclic Antidepress Negative (Negative) Ur Phencyclidine Scrn Negative (Negative) Ur Amphetamines Screen Negative (Negative) U Methamphetamines Scrn Negative (Negative) Ur MDMA Scrn (Ecstasy) Negative (Negative) U Benzodiazepines Scrn Negative (Negative) Urine Cocaine Screen Negative (Negative) U Marijuana (THC) Screen Negative (Negative) Ethyl Alcohol ( - 10) mg/dL Point of Care Testing Test Results Negative Urine Dip Bedside Urine Glucose Negative Bedside Urine Bilirubin - Negative Bedside Urine Ketone - Negative Urine Specific [place] 1.025 Bedside Urine Occult Blood +/- Bedside Urine pH 6.0 Bedside Urine Protein +/- 15 Bedside Urine Urobilinogen - Negative Bedside Urine Nitrite + Positive Bedside Urine Leukocytes - Negative Esterase MDM Narrative Medical decision making narrative: Patient signed out to me by assembler 1st shift provider. I have seen evaluated patient myself with social Work. She seems to be talking in circles always going back to her . This is her 2nd ED visit in just a few days. She was previously given outside resources to use which she has proven that she does not use them. At previous admission we attempted for her to go to a different place than home which also did not work. As she gets more agitated she clearly has poor insight she seems to be hyper focused on her which is causing her grave disability. At this time from my perspective patient is paranoid with grave disability possibly from domestic violence and or underlying psychiatric diagnosis. DCR evaluated. Patient not detainable. Patient does have a plan to go home she is given all of the resources encouraged again to use them. She is going home to her friend [place] which is what she did last time. Discharge Plan Departure Patient Disposition: Home Clinical Impression: Suicidal ideation Instructions: DI for Suicidal Ideation-Adult Activity Restrictions/Additional Instructions: *You have been diagnosed with suicide ideation *What to do: You need long-term anxiety medication which needs to be monitored in prescribed by primary care provider. Please get set up with a new primary care provider as soon as possible If you are feeling suicidal or having suicidal thoughts: Call: (BRIANDA)Suicide Hotline: Visit: www.[employer] Text: 359881 *Continue to take medications as directed *Follow up with your primary care provider in 2-3 days *Return to ER if you should have any new, worsening or concerning symptoms Prescriptions: No Action clonazepam 0.5 mg tablet 0.5 mg PO BEDTIME RF: 0 mirtazapine [Remeron] 15 mg tablet 15 mg PO BEDTIME RF: 0 Referrals: [facility] [Outside]
[2020-07-27 19:02] LABS: Thyroid Stimulating Hormone 0.733 uIU/mL (0.47-4.68)
--- NOTE | 2020-07-27 19:30 | PC.NURSE ---
Patient brought [employer] by friend. Patient ate 100% of meal. Friend has gone home for night. Patient currently laying in bed with warm blanket watching tv on phone.
[2020-07-27 20:05] VITALS: RESP 16; TEMP 37.1; O2SAT 100
--- NOTE | 2020-07-27 23:15 | PC.NURSE ---
Addendum entered by Kimmie Whitaker CNA 07/28/20 07:28: Pt remained asleep during shift change. Was cooperative and calm all night. Pt spent most of waking hours on phone with friend. Addendum entered by Kimmie Whitaker CNA 07/28/20 06:16: pt sleeping Addendum entered by Kimmie Whitaker CNA 07/28/20 04:31: pt sleeping Addendum entered by Kimmie Whitaker CNA 07/28/20 03:42: Pt asleep Addendum entered by Kimmie Whitaker CNA 07/28/20 02:36: Pt sleeping soundly Addendum entered by Kimmie Whitaker CNA 07/28/20 01:53: pt requested warm blanket as she was getting sleepy. turned down lights and raised second side rail per pt's request. Addendum entered by Kimmie Whitaker CNA 07/27/20 23:59: Pt used restroom and provided urine sample. Sample given to RN. Pt also emptied ostomy bag and requested new bag. This INTAKE ASSESSOR retrieved new bag from Acute Care floor and gave to pt who stated she would change it out in a few minutes. Pt was calm and cooperative and is now laying in bed on phone. Addendum entered by Kimmie Whitaker CNA 07/27/20 23:28: Introduced self to patient who was still on the phone. Pt stated she needed to go to the restroom but made no move to get up and continued with phone call. Original Note: Patient laying down in bed talking on phone. does not appear to be in distress at the moment.
[2020-07-28 00:08] LABS: UR Morphine/Opiate cutoff 300 Negative (Negative); Ur Creatinine 50 (Normal); Urine Amphetamines Negative (Negative); Urine Barbiturates Negative (Negative); Urine Benzodiazepines Negative (Negative); Urine Cocaine Negative (Negative); Urine MDMA Negative (Negative); Urine Methadone Negative (Negative); Urine Methamphetamines Negative (Negative); Urine Oxycodone Negative (Negative); Urine Phencyclidine Negative (Negative); Urine Tetrahydrocannabinol Negative (Negative); Urine Tricyclic Antidepressant Negative (Negative); Urine pH 6.5 (Normal)
[2020-07-28 00:12] LABS: RBC Urine 1-5/HPF (0-5/HPF); WBC Urine 1-5/HPF (0-5/HPF)
[2020-07-28 00:13] LABS: Bacteria Urine Many (>30); Culture Indicated Urine Specimen Cultured; Squamous Epithelial Cell Urine 1-5 /HPF (0-5/HPF)
[2020-07-28] MEDS: MIRTAZAPINE 15 MG TABLET PO (00:14)
[2020-07-28] MEDS: clonazePAM 0.5 MG TABLET 1 MG PO (00:29)
--- NOTE | 2020-07-28 07:45 | PC.NURSE ---
Pt. continues to sleep.
--- NOTE | 2020-07-28 09:04 | PC.NURSE ---
SUBSTATION INSPECTOR here to see pt.
--- NOTE | 2020-07-28 09:49 | PC.NURSE ---
Pt called me to room, states that she wants Ruchi TOURIST INFORMATION OFFICER, to stop talking on telephone with her . Pt had previously requested that Ruchi call . Pt states that Dr lopes had cancelled her trazadone RX. Ruchi informed. Pt called me to the room shortly thereafter, requested a physician come to the room. Dr Kaufman informed.
--- NOTE | 2020-07-28 10:15 | PC.NURSE ---
STRAW BALER and Dr. Kaufman at pt bedside
[2020-07-28 12:02] VITALS: BP 121/74; PULSE 92; RESP 20; O2SAT 98
--- NOTE | 2020-07-28 13:15 | CM.SWNOTE ---
LICENSED BONDSMAN Note This LICENSED BONDSMAN requested to complete safety eval for this 19 yo, known to this ED staff from prior ER visit 07.25.20, where patient had presented w/suicidal ideation and plan, voluntary placement attempted and no beds secured, DCR dispatched for eval and did not think patient met criteria to be detained; LICENSED BONDSMAN Nahum reassessed and worked on a safety plan w/patient for DC home w/friend and [facility] f/u. Patient w/PMH significant for suicidal ideation, depression, bipolar disorder, anxiety presents with [facility] w/complaint of suicidal threats and ideation. Patient called [facility] over the phone and they inevitably called [facility] d/t patient's comments about not wanting to be around and wishing to [place]. Reviewed chart. Met w/patient this morning, introduced role. Patient calm and cooperative throughout conversation, patient sounds younger than stated age, has apathetic mood, difficult to redirect away from conversation about her spouse and that he uses everything against me. Patient exhibits extreme paranoia, and confirms then denies suicidal ideation, states I just need him (spouse) to understand this (MH diagnosis) better. Patient lives w/her spouse and 3 yo son Murtaza. Patient explains she and spouse have been in a tumultuous relationship for months, have attempted marriage counseling, which has not worked. Patient has friends she is in contact with, has an aunt and a grandma in [place] (that raised her) that she feels supported by. Patient states her son is safe w/his father Patient denies alcohol or drug abuse. Patient does not currently have outpatient f/u, no current counselor or psychiatrist, no PCP. Patient says she has been taking her medication but cannot tell this LICENSED BONDSMAN what medication or if it has been working (?) This LICENSED BONDSMAN discusses returning home from ED today since patient does not endorse SI/HI and would like to DC w/friend to attempt separation from her spouse and seek outpatient MH supports. Patient gives this LICENSED BONDSMAN permission to call her spouse Rosetta Will#[phone], placed call and listened, asked what spouse's goal was for patient? 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 Spouse hopeful patient can get help. Spouse indicates patient had been seen by Dr Tafoya (sp?), psychiatrist, this person had said Jaye needs more than me and so referral made to [facility] Psychiatry. Returned to room to talk w/patient and she had gotten extremely upset that this LICENSED BONDSMAN was on the phone w/her spouse, patient repeated all the why why why why is going to come right back at me. Patient becoming more and more agitated and verbally aggressive. This LICENSED BONDSMAN meets w/patient w/Dr Kaufman and we cannot redirect patient to discuss her own safety and safety of her 3 yo son. Patient cannot confirm or deny medication use and states she will not go to an inpatient psychiatric unit. This LICENSED BONDSMAN and Dr Kaufman review POC together outside of patient room and agree patient would benefit from an evaluation from DCR. Patient refusing attempt at inpatient psychiatric unit to stabilize and get structured med management. Patient comes in w/threats of suicide and demonstrating labile mood, pressured speech, agitation and aggressiveness w/significant hx , and cannot be redirected to a discussion about her own safety at this time. TC to [facility], medical attestation form signed and faxed, now awaiting input from ANA Zheng. FRED Cast
[2020-07-28 15:13] VITALS: BP 105/59; PULSE 93; RESP 18; O2SAT 99
--- NOTE | 2020-07-28 15:28 | CM.SWNOTE ---
RN PALLIATIVE CARE Note ANA Zheng in to see patient, patient will not be detained today- according to conversation w/ Marce: Patient is willing to go to [facility]. Marce suspects patient suffers from Bipolar Disorder and Borderline Personality Disorder; fears she is high risk for readmission and over utilization of resources although currently low suicide risk at this time. Inpatient [facility] psych beds limited today; [facility] might have a bed however patient will be released after 72 hours which will not serve her well according to DCR. Placed call to [facility], they have room at their [place] facility but will not accept patient w/Colostomy (even self managed). Marce suggests patient DC home w/friend [place], [place] [facility] [place] and get established w/ Behavioral Health/Psychiatry. This RN PALLIATIVE CARE updated Dr Kaufman and now patient DC in process. Met w/patient and explained that this RN PALLIATIVE CARE still feels patient would benefit from inpatient psychiatric stay however no bed could be found today and DCR did not feel patient met criteria to be detained against her will. Patient upset w/this RN PALLIATIVE CARE, expresses concern and anger about being kept here for nothing. Patient states she is calling her PCP tomorrow morning and has appt w/someone at [facility] at the end of the month. Patient cannot say what date and w/whom she has an appt. Patient denies SI/HI at this time. Plan: DC w/friend, outpatient resources discussed FRED Cast
== END 2020-07-28 15:21 | disposition home or self-care (01) ==
PROVIDERS: Emergency Medicine; Nurse Practitioner Family; Emergency Provider Emergency Medicine
DX: R45.851 Suicidal ideations (principal)
CPT/HCPCS: 36415; 80053; 80305; 80320; 80329; 81003; 81015; 81025; 84443; 85025; 87077; 87086; 87186; 99284; G0480

== ENCOUNTER 2020-09-14 00:05 | Emergency (ER) | payer OTHER, SELFPAY ==
[2020-09-14 00:10] VITALS: BP 131/88; PULSE 104; RESP 18; TEMP 37.1; O2SAT 98; BMI 26.6
[2020-09-14 00:41] LABS: Bacteria Urine Many (>30); Squamous Epithelial Cell Urine 1-5 /HPF (0-5/HPF); WBC Urine 1-5/HPF (0-5/HPF)
[2020-09-14 00:42] LABS: RBC Urine 30-100/HPF (0-5/HPF)
[2020-09-14 00:43] LABS: Culture Indicated Urine Specimen Cultured
[2020-09-14 00:49] LABS: UR Morphine/Opiate cutoff 300 Negative (Negative); Ur Creatinine Normal (Normal); Ur Specific Gravity Normal (Normal); Urine Amphetamines Negative (Negative); Urine Barbiturates Negative (Negative); Urine Benzodiazepines Negative (Negative); Urine Cocaine Negative (Negative); Urine MDMA Negative (Negative); Urine Methadone Negative (Negative); Urine Methamphetamines Negative (Negative); Urine Oxycodone Negative (Negative); Urine Phencyclidine Negative (Negative); Urine Tetrahydrocannabinol Negative (Negative); Urine Tricyclic Antidepressant Negative (Negative); Urine pH Normal (Normal)
[2020-09-14 01:08] LABS: Add Manual Diff / Slide Review NO; Basophils Absolute Auto 100 /uL (0-100); Basophils Percent Auto 0.7 % (0-2); Eosinophils Absolute Auto 200 /uL (0-450); Eosinophils Percent Auto 1.8 % (2-4); Hematocrit 42.1 % (36-46); Hemoglobin 13.8 g/dL (12.0-16.0); Lymphocytes Absolute Auto 2200 /uL (1100-4500); Lymphocytes Percent Auto 18.9 % (25-40); Mean Corpuscular HGB Conc 32.7 % (30-36); Mean Corpuscular Hemoglobin 26.9 PG (26-34); Mean Corpuscular Volume 82.2 fL (80-100); Monocytes Absolute Auto 600 /uL (0-900); Monocytes Percent Auto 4.6 % (3-14); Neutrophils Absolute Auto 8800 /uL (1500-7000); Platelet Count 268 X10^3/uL (150-400); Red Blood Cell Count 5.12 X10^6/uL (4.0-5.2); Red Cell Distribution Width 13.4 % (11.6-14.8); White Blood Cell Count 11.9 X10^3/uL (4.5-11.0)
[2020-09-14 01:15] LABS: Alanine Aminotransferase 110 IU/L (<35); Albumin 4.6 g/dL (3.5-5.0); Albumin Globulin Ratio 1.4 (1.0-2.8); Alkaline Phosphatase 76 U/L (38-126); Aspartate Aminotransferase 55 IU/L (14-36); Bilirubin Total 0.6 mg/dL (0.2-1.3); Blood Urea Nitrogen 13 mg/dL (7-17); Calcium 9.7 mg/dL (8.4-10.2); Carbon Dioxide 28 mmol/L (22-32); Chloride 103 mmol/L (98-107); Estimated Glomerular Filt Rate > 60.0 mL/min (>60); Ethanol (ETOH) < 10 mg/dL; Globulin 3.4 g/dL (1.7-4.1); Glucose 102 mg/dL (70-100); HEMOLYSIS < 15 (0-50); Sodium 138 mmol/L (137-145)
[2020-09-14 01:28] LABS: COVID19 -Nasal RAPID Negative (Negative)
[2020-09-14] MEDS: QUETIAPINE 25 MG TABLET 50 MG PO (01:34)
[2020-09-14] MEDS: clonazePAM 0.5 MG TABLET PO (01:34)
[2020-09-14 01:50] LABS: Thyroid Stimulating Hormone 1.26 uIU/mL (0.47-4.68)
--- NOTE | 2020-09-14 02:03 | ED_ITS ---
HPI - Psych <Philippe Nowak DO - Last Filed: 09/15/20 03:17> General Chief Complaint: Psychiatric Symptoms Stated Complaint: SI Time Seen by Provider: 09/14/20 00:05 Source: patient and EMS Mode of arrival: EMS Limitations: no limitations History of Present Illness HPI Narrative: 19-year-old female nonsmoker with mental health history including prior suicidal ideation. She presnts by EMS for episodes of self harm and request to speak to someone. She was quite close to her great grandmother who recently . She was very upset and was attempting to communicate with her who was not supportive. They argued and she became upset and went into the bathroom and cut his initials into her right wrist and left ankle. She denies current suicidal ideation, homicidal ideation or plan. She is under the care of a therapist whom she actually spoke with yesterday, she admits she does not feel like her therapist listens or hears her. She denies use of alcohol or street drugs. She states she has been taking medications as directed. MD complaint: feels depressed Onset (ago): hour(s) Duration: constant History of same: Yes Relieving factors: none Exacerbating factors: other Context: significant life stressor Associated psychiatric symptoms: depression and suicidal ideation Associated symptoms: denies other symptoms Treatments prior to arrival: none If self harm: admits thoughts of self harm Related Data Home Medications Medication Instructions Recorded Confirmed clonazepam 0.5 mg PO BEDTIME 07/27/20 07/28/20 mirtazapine [Remeron] 15 mg PO BEDTIME 07/28/20 07/28/20 Previous Rx's Medication Instructions Recorded sulfamethoxazole-trimethoprim 1 tab PO BID 5 Days #10 tab 09/14/20 [Bactrim DS] Allergies Allergy/AdvReac Type Severity Reaction Status Date / Time iodine Allergy Rash Verified 09/14/20 00:30 morphine AdvReac Nausea Verified 09/14/20 00:30 contrast Allergy Rash Uncoded 09/14/20 00:30 Review of Systems <Philippe Nowak DO - Last Filed: 09/15/20 03:17> Constitutional Constitutional: Denies chills, Denies fatigue, Denies fever(s), Denies frequent falls, Denies lethargy and Denies weakness Eyes Eyes: Denies change in vision, Denies eye discharge, Denies irritation and Denies loss of vision ENT Ears, Nose, Mouth, and Throat: Denies change in voice, Denies dizziness, Denies neck pain, Denies sore throat and Denies throat swelling Cardiovascular Cardiovascular: Denies chest pain, Denies irregular heart rhythm, Denies lightheadedness, Denies palpitations, Denies dyspnea, Denies dyspnea on exertion and Denies orthopnea Respiratory Respiratory: Denies cough, Denies dyspnea, Denies dyspnea on exertion and Denies wheezing Gastrointestinal Gastrointestinal: Denies abdominal pain, Denies change in bowel habits, Denies diarrhea, Denies nausea and Denies vomiting Musculoskeletal Musculoskeletal: Denies neck pain and Denies numbness Integumentary/Breasts Skin/Breast: Denies pruritus, Denies erythema, Denies rash and Reports wounds Neurologic Neurologic: Reports behavioral changes, Denies confusion, Denies dizziness, Denies frequent falls, Denies loss of vision, Denies numbness and Denies weakness Psychiatric Psychiatric: Denies anxiety, Reports behavioral changes, Denies confusion, Reports depression, Denies homicidal ideation and Reports suicidal ideation Endocrine Endocrine: Denies fatigue, Denies flushing and Denies palpitations Hematologic/Lymphatic Hematologic/Lymphatic: Denies easy bruising Allergic/Immunologic Allergic/Immunologic: Denies urticaria, Denies throat swelling and Denies wheezing Patient History <Philippe Nowak DO - Last Filed: 09/15/20 03:17> Medical History Anxiety Depression Imperforate anus Social History Smoking Status: Never smoker Smoking Status: Never smoker Substance Use Type: marijuana Exam <Philpipe Nowak DO - Last Filed: 09/15/20 03:17> Narrative Exam Narrative: GENERAL: [19] year old patient appears stated age. Well- nourished, well-developed patient, in mild distress. Appropriate insight HEAD: Atraumatic. Normocephalic. EYES: Pupils equal round and reactive. Extraocular motions intact. No scleral icterus. No injection or drainage. ENT: Nose without bleeding, purulent drainage. Throat without erythema, tonsillar hypertrophy or exudate. Airway patent. NECK: Trachea midline. Non tender CARDIOVASCULAR: Regular rate and rhythm without murmurs, gallops, or rubs. RESPIRATORY: Clear to auscultation. Breath sounds equal bilaterally. No wheezes, rales, or rhonchi. GASTROINTESTINAL: Abdomen soft, non-tender, nondistended. EXTREMITIES: No edema or joint tenderness. BACK: Nontender without deformity or crepitance. No flank tenderness. NEURO: AOx3. SKIN: Superficial intentional abrasions to left wrist and left distal avina. No bleeding, no need for repair. No rash or erythema of visible areas Initial Vital Signs Initial Vital Signs: Vital Signs Temperature 98.8 F 09/14/20 00:10 Pulse Rate 104 H 09/14/20 00:10 Respiratory Rate 18 09/14/20 00:10 Blood Pressure 131/88 09/14/20 00:10 Pulse Oximetry 98 09/14/20 00:10 <Tesfaye Traylor DO - Last Filed: 09/14/20 12:50> Initial Vital Signs Initial Vital Signs: Vital Signs Temperature 98.8 F 09/14/20 00:10 Pulse Rate 104 H 09/14/20 00:10 Respiratory Rate 18 09/14/20 00:10 Blood Pressure 131/88 09/14/20 00:10 Pulse Oximetry 98 09/14/20 00:10 Course <Philippe Nowak DO - Last Filed: 09/15/20 03:17> Orders Ordered: Discontinued Medications Clonazepam (Clonazepam 0.5 Mg Tablet) 0.5 mg PO NOW ONE Stop: 09/14/20 01:16 Last Admin: 09/14/20 01:34 Dose: 0.5 mg Documented by: PHILL Diphenhydramine HCl (Diphenhydramine 25 Mg Tablet) 50 mg PO NOW ONE Stop: 09/14/20 02:15 Last Admin: 09/14/20 02:17 Dose: 50 mg Documented by: PHILL Phenazopyridine HCl (Phenazopyridine 100 Mg Tablet) 200 mg PO NOW ONE Stop: 09/14/20 02:04 Last Admin: 09/14/20 02:07 Dose: 200 mg Documented by: PHILL Quetiapine Fumarate (Quetiapine 25 Mg Tablet) 50 mg PO NOW ONE Stop: 09/14/20 01:16 Last Admin: 09/14/20 01:34 Dose: 50 mg Documented by: PHILL Trimethoprim/Sulfamethoxazole (Trimeth/Sulfa 160/800 (Ds) Tablet) 1 tab PO NOW ONE Stop: 09/14/20 02:04 Last Admin: 09/14/20 02:08 Dose: 1 tab Documented by: PHILL Vital Signs Vital signs: Vital Signs - 8 hr 09/14/20 11:45 Temperature 97.9 F Pulse Rate 109 H Respiratory Rate 16 Blood Pressure 130/77 Pulse Oximetry 97 <Tesfaye Traylor DO - Last Filed: 09/14/20 12:50> Orders Ordered: Discontinued Medications Clonazepam (Clonazepam 0.5 Mg Tablet) 0.5 mg PO NOW ONE Stop: 09/14/20 01:16 Last Admin: 09/14/20 01:34 Dose: 0.5 mg Documented by: PHILL Diphenhydramine HCl (Diphenhydramine 25 Mg Tablet) 50 mg PO NOW ONE Stop: 09/14/20 02:15 Last Admin: 09/14/20 02:17 Dose: 50 mg Documented by: PHILL Phenazopyridine HCl (Phenazopyridine 100 Mg Tablet) 200 mg PO NOW ONE Stop: 09/14/20 02:04 Last Admin: 09/14/20 02:07 Dose: 200 mg Documented by: PHILL Quetiapine Fumarate (Quetiapine 25 Mg Tablet) 50 mg PO NOW ONE Stop: 09/14/20 01:16 Last Admin: 09/14/20 01:34 Dose: 50 mg Documented by: PHILL Trimethoprim/Sulfamethoxazole (Trimeth/Sulfa 160/800 (Ds) Tablet) 1 tab PO NOW ONE Stop: 09/14/20 02:04 Last Admin: 09/14/20 02:08 Dose: 1 tab Documented by: PHILL Vital Signs Vital signs: Vital Signs - 8 hr 09/14/20 11:45 Temperature 97.9 F Pulse Rate 109 H Respiratory Rate 16 Blood Pressure 130/77 Pulse Oximetry 97 MDM - Psych <Philippe Nowak DO - Last Filed: 09/15/20 03:17> Lab Data Result diagrams: 09/14/20 00:50 09/14/20 00:50 Labs: Lab Results 09/14/20 09/14/20 09/14/20 Range/Units 00:28 00:28 00:28 WBC (4.5-11.0) X10^3/uL RBC (4.0-5.2) X10^6/uL Hgb (12.0-16.0) g/dL Hct (36-46) % MCV (80-100) fL MCH (26-34) PG MCHC (30-36) % RDW (11.6-14.8) % Plt Count (150-400) X10^3/uL Neut % (Auto) (50-75) % Lymph % (Auto) (25-40) % [place] % (Auto) (3-14) % Eos % (Auto) (2-4) % Baso % (Auto) (0-2) % Neut # (Auto) (7396-1785) /uL Lymph # (Auto) (2375-8419) /uL [place] # (Auto) (0-900) /uL Eos # (Auto) (0-450) /uL Baso # (Auto) (0-100) /uL Sodium (137-145) mmol/L Potassium (3.4-5.1) mmol/L Chloride (98-107) mmol/L Carbon Dioxide (22-32) mmol/L BUN (7-17) mg/dL Creatinine (0.52-1.04) mg/dL Estimated GFR (>60) mL/min BUN/Creatinine Ratio (6-22) Glucose (70-100) mg/dL Calcium (8.4-10.2) mg/dL Total Bilirubin (0.2-1.3) mg/dL AST (14-36) IU/L ALT (<35) IU/L Alkaline Phosphatase (38-126) U/L Total Protein (6.3-8.2) g/dL Albumin (3.5-5.0) g/dL Globulin (1.7-4.1) g/dL Albumin/Globulin Ratio (1.0-2.8) TSH (0.47-4.68) uIU/mL Urine Color Cancelled Urine Appearance Cancelled Urine pH Cancelled Ur Specific [place] Cancelled Urine Protein Cancelled Urine Glucose (UA) Cancelled Urine Ketones Cancelled Urine Occult Blood Cancelled Urine Nitrate Cancelled Urine Bilirubin Cancelled Urine Urobilinogen Cancelled Ur Leukocyte Esterase Cancelled Urine RBC 30-100/hpf H (0-5/HPF) Urine WBC 1-5/hpf (0-5/HPF) Ur Squamous Epith Cells 1-5 /hpf (0-5/HPF) Urine Bacteria Many (>30) H (None) Ur Culture Indicated? Specimen cultured U Opiates 300ng/mL cut Negative (Negative) Ur Oxycodone Screen Negative (Negative) Urine Methadone Screen Negative (Negative) Ur Barbiturates Screen Negative (Negative) U Tricyclic Antidepress Negative (Negative) Ur Phencyclidine Scrn Negative (Negative) Ur Amphetamines Screen Negative (Negative) U Methamphetamines Scrn Negative (Negative) Ur MDMA Scrn (Ecstasy) Negative (Negative) U Benzodiazepines Scrn Negative (Negative) Urine Cocaine Screen Negative (Negative) U Marijuana (THC) Screen Negative (Negative) Ethyl Alcohol ( - 10) mg/dL SARS-CoV-2 (PCR) (Negative) 09/14/20 09/14/20 09/14/20 Range/Units 00:50 00:50 00:50 WBC 11.9 H (4.5-11.0) X10^3/uL RBC 5.12 (4.0-5.2) X10^6/uL Hgb 13.8 (12.0-16.0) g/dL Hct 42.1 (36-46) % MCV 82.2 (80-100) fL MCH 26.9 (26-34) PG MCHC 32.7 (30-36) % RDW 13.4 (11.6-14.8) % Plt Count 268 (150-400) X10^3/uL Neut % (Auto) 74.0 (50-75) % Lymph % (Auto) 18.9 L (25-40) % [place] % (Auto) 4.6 (3-14) % Eos % (Auto) 1.8 L (2-4) % Baso % (Auto) 0.7 (0-2) % Neut # (Auto) 8800 H (5397-0981) /uL Lymph # (Auto) 2200 (6963-4791) /uL [place] # (Auto) 600 (0-900) /uL Eos # (Auto) 200 (0-450) /uL Baso # (Auto) 100 (0-100) /uL Sodium 138 (137-145) mmol/L Potassium 4.0 (3.4-5.1) mmol/L Chloride 103 (98-107) mmol/L Carbon Dioxide 28 (22-32) mmol/L BUN 13 (7-17) mg/dL Creatinine 0.65 (0.52-1.04) mg/dL Estimated GFR > 60.0 (>60) mL/min BUN/Creatinine Ratio 20.0 (6-22) Glucose 102 H (70-100) mg/dL Calcium 9.7 (8.4-10.2) mg/dL Total Bilirubin 0.6 (0.2-1.3) mg/dL AST 55 H (14-36) IU/L ALT 110 H (<35) IU/L Alkaline Phosphatase 76 (38-126) U/L Total Protein 8.0 (6.3-8.2) g/dL Albumin 4.6 (3.5-5.0) g/dL Globulin 3.4 (1.7-4.1) g/dL Albumin/Globulin Ratio 1.4 (1.0-2.8) TSH 1.26 (0.47-4.68) uIU/mL Urine Color Urine Appearance Urine pH Ur Specific [place] Urine Protein Urine Glucose (UA) Urine Ketones Urine Occult Blood Urine Nitrate Urine Bilirubin Urine Urobilinogen Ur Leukocyte Esterase Urine RBC (0-5/HPF) Urine WBC (0-5/HPF) Ur Squamous Epith Cells (0-5/HPF) Urine Bacteria (None) Ur Culture Indicated? U Opiates 300ng/mL cut (Negative) Ur Oxycodone Screen (Negative) Urine Methadone Screen (Negative) Ur Barbiturates Screen (Negative) U Tricyclic Antidepress (Negative) Ur Phencyclidine Scrn (Negative) Ur Amphetamines Screen (Negative) U Methamphetamines Scrn (Negative) Ur MDMA Scrn (Ecstasy) (Negative) U Benzodiazepines Scrn (Negative) Urine Cocaine Screen (Negative) U Marijuana (THC) Screen (Negative) Ethyl Alcohol < 10 ( - 10) mg/dL SARS-CoV-2 (PCR) (Negative) 09/14/20 Range/Units 01:05 WBC (4.5-11.0) X10^3/uL RBC (4.0-5.2) X10^6/uL Hgb (12.0-16.0) g/dL Hct (36-46) % MCV (80-100) fL MCH (26-34) PG MCHC (30-36) % RDW (11.6-14.8) % Plt Count (150-400) X10^3/uL Neut % (Auto) (50-75) % Lymph % (Auto) (25-40) % [place] % (Auto) (3-14) % Eos % (Auto) (2-4) % Baso % (Auto) (0-2) % Neut # (Auto) (1621-1111) /uL Lymph # (Auto) (6137-3786) /uL [place] # (Auto) (0-900) /uL Eos # (Auto) (0-450) /uL Baso # (Auto) (0-100) /uL Sodium (137-145) mmol/L Potassium (3.4-5.1) mmol/L Chloride (98-107) mmol/L Carbon Dioxide (22-32) mmol/L BUN (7-17) mg/dL Creatinine (0.52-1.04) mg/dL Estimated GFR (>60) mL/min BUN/Creatinine Ratio (6-22) Glucose (70-100) mg/dL Calcium (8.4-10.2) mg/dL Total Bilirubin (0.2-1.3) mg/dL AST (14-36) IU/L ALT (<35) IU/L Alkaline Phosphatase (38-126) U/L Total Protein (6.3-8.2) g/dL Albumin (3.5-5.0) g/dL Globulin (1.7-4.1) g/dL Albumin/Globulin Ratio (1.0-2.8) TSH (0.47-4.68) uIU/mL Urine Color Urine Appearance Urine pH Ur Specific [place] Urine Protein Urine Glucose (UA) Urine Ketones Urine Occult Blood Urine Nitrate Urine Bilirubin Urine Urobilinogen Ur Leukocyte Esterase Urine RBC (0-5/HPF) Urine WBC (0-5/HPF) Ur Squamous Epith Cells (0-5/HPF) Urine Bacteria (None) Ur Culture Indicated? U Opiates 300ng/mL cut (Negative) Ur Oxycodone Screen (Negative) Urine Methadone Screen (Negative) Ur Barbiturates Screen (Negative) U Tricyclic Antidepress (Negative) Ur Phencyclidine Scrn (Negative) Ur Amphetamines Screen (Negative) U Methamphetamines Scrn (Negative) Ur MDMA Scrn (Ecstasy) (Negative) U Benzodiazepines Scrn (Negative) Urine Cocaine Screen (Negative) U Marijuana (THC) Screen (Negative) Ethyl Alcohol ( - 10) mg/dL SARS-CoV-2 (PCR) Negative (Negative) Point of Care Testing Test Results Negative Rapid Strep A Negative Urine Dip Bedside Urine Glucose Negative Bedside Urine Bilirubin - Negative Bedside Urine Ketone - Negative Urine Specific [place] 1.015 Bedside Urine Occult Blood +++ Bedside Urine pH 7.5 Bedside Urine Protein +/- 15 Bedside Urine Urobilinogen - Negative Bedside Urine Nitrite - Negative Bedside Urine Leukocytes ++ 125 Esterase <Tesfaye Traylor, DO - Last Filed: 09/14/20 12:50> Lab Data Labs: Lab Results 09/14/20 09/14/20 09/14/20 Range/Units 00:28 00:28 00:28 WBC (4.5-11.0) X10^3/uL RBC (4.0-5.2) X10^6/uL Hgb (12.0-16.0) g/dL Hct (36-46) % MCV (80-100) fL MCH (26-34) PG MCHC (30-36) % RDW (11.6-14.8) % Plt Count (150-400) X10^3/uL Neut % (Auto) (50-75) % Lymph % (Auto) (25-40) % [place] % (Auto) (3-14) % Eos % (Auto) (2-4) % Baso % (Auto) (0-2) % Neut # (Auto) (1203-6456) /uL Lymph # (Auto) (9859-8254) /uL [place] # (Auto) (0-900) /uL Eos # (Auto) (0-450) /uL Baso # (Auto) (0-100) /uL Sodium (137-145) mmol/L Potassium (3.4-5.1) mmol/L Chloride (98-107) mmol/L Carbon Dioxide (22-32) mmol/L BUN (7-17) mg/dL Creatinine (0.52-1.04) mg/dL Estimated GFR (>60) mL/min BUN/Creatinine Ratio (6-22) Glucose (70-100) mg/dL Calcium (8.4-10.2) mg/dL Total Bilirubin (0.2-1.3) mg/dL AST (14-36) IU/L ALT (<35) IU/L Alkaline Phosphatase (38-126) U/L Total Protein (6.3-8.2) g/dL Albumin (3.5-5.0) g/dL Globulin (1.7-4.1) g/dL Albumin/Globulin Ratio (1.0-2.8) TSH (0.47-4.68) uIU/mL Urine Color Cancelled Urine Appearance Cancelled Urine pH Cancelled Ur Specific [place] Cancelled Urine Protein Cancelled Urine Glucose (UA) Cancelled Urine Ketones Cancelled Urine Occult Blood Cancelled Urine Nitrate Cancelled Urine Bilirubin Cancelled Urine Urobilinogen Cancelled Ur Leukocyte Esterase Cancelled Urine RBC 30-100/hpf H (0-5/HPF) Urine WBC 1-5/hpf (0-5/HPF) Ur Squamous Epith Cells 1-5 /hpf (0-5/HPF) Urine Bacteria Many (>30) H (None) Ur Culture Indicated? Specimen cultured U Opiates 300ng/mL cut Negative (Negative) Ur Oxycodone Screen Negative (Negative) Urine Methadone Screen Negative (Negative) Ur Barbiturates Screen Negative (Negative) U Tricyclic Antidepress Negative (Negative) Ur Phencyclidine Scrn Negative (Negative) Ur Amphetamines Screen Negative (Negative) U Methamphetamines Scrn Negative (Negative) Ur MDMA Scrn (Ecstasy) Negative (Negative) U Benzodiazepines Scrn Negative (Negative) Urine Cocaine Screen Negative (Negative) U Marijuana (THC) Screen Negative (Negative) Ethyl Alcohol ( - 10) mg/dL SARS-CoV-2 (PCR) (Negative) 09/14/20 09/14/20 09/14/20 Range/Units 00:50 00:50 00:50 WBC 11.9 H (4.5-11.0) X10^3/uL RBC 5.12 (4.0-5.2) X10^6/uL Hgb 13.8 (12.0-16.0) g/dL Hct 42.1 (36-46) % MCV 82.2 (80-100) fL MCH 26.9 (26-34) PG MCHC 32.7 (30-36) % RDW 13.4 (11.6-14.8) % Plt Count 268 (150-400) X10^3/uL Neut % (Auto) 74.0 (50-75) % Lymph % (Auto) 18.9 L (25-40) % [place] % (Auto) 4.6 (3-14) % Eos % (Auto) 1.8 L (2-4) % Baso % (Auto) 0.7 (0-2) % Neut # (Auto) 8800 H (9554-5905) /uL Lymph # (Auto) 2200 (2260-7910) /uL [place] # (Auto) 600 (0-900) /uL Eos # (Auto) 200 (0-450) /uL Baso # (Auto) 100 (0-100) /uL Sodium 138 (137-145) mmol/L Potassium 4.0 (3.4-5.1) mmol/L Chloride 103 (98-107) mmol/L Carbon Dioxide 28 (22-32) mmol/L BUN 13 (7-17) mg/dL Creatinine 0.65 (0.52-1.04) mg/dL Estimated GFR > 60.0 (>60) mL/min BUN/Creatinine Ratio 20.0 (6-22) Glucose 102 H (70-100) mg/dL Calcium 9.7 (8.4-10.2) mg/dL Total Bilirubin 0.6 (0.2-1.3) mg/dL AST 55 H (14-36) IU/L ALT 110 H (<35) IU/L Alkaline Phosphatase 76 (38-126) U/L Total Protein 8.0 (6.3-8.2) g/dL Albumin 4.6 (3.5-5.0) g/dL Globulin 3.4 (1.7-4.1) g/dL Albumin/Globulin Ratio 1.4 (1.0-2.8) TSH 1.26 (0.47-4.68) uIU/mL Urine Color Urine Appearance Urine pH Ur Specific [place] Urine Protein Urine Glucose (UA) Urine Ketones Urine Occult Blood Urine Nitrate Urine Bilirubin Urine Urobilinogen Ur Leukocyte Esterase Urine RBC (0-5/HPF) Urine WBC (0-5/HPF) Ur Squamous Epith Cells (0-5/HPF) Urine Bacteria (None) Ur Culture Indicated? U Opiates 300ng/mL cut (Negative) Ur Oxycodone Screen (Negative) Urine Methadone Screen (Negative) Ur Barbiturates Screen (Negative) U Tricyclic Antidepress (Negative) Ur Phencyclidine Scrn (Negative) Ur Amphetamines Screen (Negative) U Methamphetamines Scrn (Negative) Ur MDMA Scrn (Ecstasy) (Negative) U Benzodiazepines Scrn (Negative) Urine Cocaine Screen (Negative) U Marijuana (THC) Screen (Negative) Ethyl Alcohol < 10 ( - 10) mg/dL SARS-CoV-2 (PCR) (Negative) 09/14/20 Range/Units 01:05 WBC (4.5-11.0) X10^3/uL RBC (4.0-5.2) X10^6/uL Hgb (12.0-16.0) g/dL Hct (36-46) % MCV (80-100) fL MCH (26-34) PG MCHC (30-36) % RDW (11.6-14.8) % Plt Count (150-400) X10^3/uL Neut % (Auto) (50-75) % Lymph % (Auto) (25-40) % [place] % (Auto) (3-14) % Eos % (Auto) (2-4) % Baso % (Auto) (0-2) % Neut # (Auto) (3050-6428) /uL Lymph # (Auto) (6262-0623) /uL [place] # (Auto) (0-900) /uL Eos # (Auto) (0-450) /uL Baso # (Auto) (0-100) /uL Sodium (137-145) mmol/L Potassium (3.4-5.1) mmol/L Chloride (98-107) mmol/L Carbon Dioxide (22-32) mmol/L BUN (7-17) mg/dL Creatinine (0.52-1.04) mg/dL Estimated GFR (>60) mL/min BUN/Creatinine Ratio (6-22) Glucose (70-100) mg/dL Calcium (8.4-10.2) mg/dL Total Bilirubin (0.2-1.3) mg/dL AST (14-36) IU/L ALT (<35) IU/L Alkaline Phosphatase (38-126) U/L Total Protein (6.3-8.2) g/dL Albumin (3.5-5.0) g/dL Globulin (1.7-4.1) g/dL Albumin/Globulin Ratio (1.0-2.8) TSH (0.47-4.68) uIU/mL Urine Color Urine Appearance Urine pH Ur Specific [place] Urine Protein Urine Glucose (UA) Urine Ketones Urine Occult Blood Urine Nitrate Urine Bilirubin Urine Urobilinogen Ur Leukocyte Esterase Urine RBC (0-5/HPF) Urine WBC (0-5/HPF) Ur Squamous Epith Cells (0-5/HPF) Urine Bacteria (None) Ur Culture Indicated? U Opiates 300ng/mL cut (Negative) Ur Oxycodone Screen (Negative) Urine Methadone Screen (Negative) Ur Barbiturates Screen (Negative) U Tricyclic Antidepress (Negative) Ur Phencyclidine Scrn (Negative) Ur Amphetamines Screen (Negative) U Methamphetamines Scrn (Negative) Ur MDMA Scrn (Ecstasy) (Negative) U Benzodiazepines Scrn (Negative) Urine Cocaine Screen (Negative) U Marijuana (THC) Screen (Negative) Ethyl Alcohol ( - 10) mg/dL SARS-CoV-2 (PCR) Negative (Negative) Point of Care Testing Test Results Negative Rapid Strep A Negative Urine Dip Bedside Urine Glucose Negative Bedside Urine Bilirubin - Negative Bedside Urine Ketone - Negative Urine Specific [place] 1.015 Bedside Urine Occult Blood +++ Bedside Urine pH 7.5 Bedside Urine Protein +/- 15 Bedside Urine Urobilinogen - Negative Bedside Urine Nitrite - Negative Bedside Urine Leukocytes ++ 125 Esterase MDM Narrative Medical decision making narrative: Dr traylor: Received turned over. Reviewed patient's history and physical. Patient was seen by mental health here in the ER and determine issues mid the patient can be discharged home. There is follow-up already scheduled. Patient will be given a prescription for urinary tract infection. She was given a dose here in the emergency department by night provider. She is given return precautions. She expressed understanding agreement. Discharge Plan Departure Patient Disposition: Home Clinical Impression: Intentional self-harm Depression Qualifiers: Depression Type: major depressive disorder Major depression recurrence: recurrent Active/Remission status: currently active Major depression episode severity: severe Psychotic features: without psychotic features Qualified Cod e(s): F33.2 - Major depressive disorder, recurrent severe without psychotic features UTI (urinary tract infection) Qualifiers: Urinary tract infection type: acute cystitis Hematuria presence: without hematu mitchell Qualified Code(s): N30.00 - Acute cystitis without hematuria Instructions: Depression, DI for Urinary Tract Infection (UTI) Activity Restrictions/Additional Instructions: Recommend you continue all of your medications as directed. Keep all of your scheduled medical appointments. It was found during your workup here in the emergency department that you most likely have a urinary tract infection. You were given a prescription for antibiotics. Please take it as directed. Contact her primary provider for a follow-up. Return to the emergency department for any new or worsening symptoms Prescriptions: New sulfamethoxazole-trimethoprim [Bactrim DS] 800-160 mg tablet 1 tab PO BID 5 Days Qty: 10 RF: 0 No Action clonazepam 0.5 mg tablet 0.5 mg PO BEDTIME RF: 0 mirtazapine [Remeron] 15 mg tablet 15 mg PO BEDTIME RF: 0
[2020-09-14] MEDS: PHENAZOPYRIDINE 100 MG TABLET 200 MG PO (02:07)
[2020-09-14] MEDS: TRIMETH/SULFA 160/800 (DS) TABLET 1 TAB PO (02:08)
[2020-09-14] MEDS: diphenhydrAMINE 25 MG TABLET 50 MG PO (02:17)
--- NOTE | 2020-09-14 07:45 | PC.NURSE ---
Assumed pt care. Will assess further when pt is awake. Pt sleeping soundly. Respirations even and unlabored
[2020-09-14 11:45] VITALS: BP 130/77; PULSE 109; RESP 16; TEMP 36.6; O2SAT 97
--- NOTE | 2020-09-14 12:30 | PC.NURSE ---
Pt woke up to speak with DRY CELL BATTERY ASSEMBLER. DRY CELL BATTERY ASSEMBLER has cleared pt to go home and has spoken with MD. MD cleared pt for d/c. Pt given all belongings included her backpack.
--- NOTE | 2020-09-14 12:48 | CM.SWNOTE ---
CORPORATE TAX MANAGER note CORPORATE TAX MANAGER consult requested for patient. Patient is a 19 y/o female who is familiar to this ED and this CORPORATE TAX MANAGER from previous ED visits. Patient presents to EMS today via EMS with attempts of self harm, turbulance in communication with , and the loss of a close family member. CORPORATE TAX MANAGER enters room and speaks with patient. Patient remembers CORPORATE TAX MANAGER from previous visit and is initially defensive upon introductions: Why did they send you in here? CORPORATE TAX MANAGER explained that it is the role of CORPORATE TAX MANAGER to learn about some of the factors that led to patient coming here. Patient states I'm not going anywhere- I'm not trying to be committed, I'm going home. CORPORATE TAX MANAGER de-escalates patient and patient explains that there has been tension in her relationship with her : He says I'm not a mother because I cry a lot. Patient said she was angry with her and said she resorted to cutting to relieve the stress she was experiencing. Patient explained she was on the phone with an advocate on the [employer] who ended up calling 911. Patient states she feels safe at home and denies SI/HI. Patient reports she has become established with a PCP (psychiatrist?) and counselor through [facility]. Patient reports she meets with counselor weekly and has good rapport with both PCP and counselor. Patient states she will see both later in week. Patient states she feels ready to go home and is arranging a ride with a friend who lives locally. Patient denies any other needs from CORPORATE TAX MANAGER at this time. CORPORATE TAX MANAGER updates Dr. Traylor and GIL Garcia. Pl: Patient to d/c and continue outpatient supports through [facility]. FRED Kaufman
== END 2020-09-14 13:12 | disposition home or self-care (01) ==
PROVIDERS: Emergency Medicine; Emergency Provider Emergency Medicine
DX: T14.91XA Suicide attempt, initial encounter (principal); F33.2 Major depressive disorder, recurrent severe without psychotic features; N30.00 Acute cystitis without hematuria; Z20.822 Contact with and (suspected) exposure to COVID-19
CPT/HCPCS: 36415; 80053; 80305; 80320; 81003; 81015; 81025; 84443; 85025; 87070; 87077; 87086; 87186; 87635; 87880; 99284; C9803

== ENCOUNTER 2020-10-07 18:04 | Emergency (ER) | payer OTHER, SELFPAY ==
[2020-10-07 18:10] VITALS: BP 123/82; PULSE 98; RESP 16; TEMP 36.6; O2SAT 97; BMI 28.3
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
--- NOTE | 2020-10-07 19:55 | PC.NURSE ---
patient complains of a sore tongue. her tongue is pierced and it appears redened around the top of the ball of the piecing.
--- NOTE | 2020-10-07 19:57 | PC.NURSE ---
patient states that she wants to stay the night and call her counselor tomorrow and talk about options.
--- NOTE | 2020-10-07 21:26 | PC.NURSE ---
pt. has been on phone with friends, laughing and in happy mood.
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
== END 2020-10-07 22:13 | disposition home or self-care (01) ==
PROVIDERS: Emergency Provider Emergency Medicine
DX: Z71.89 Other specified counseling (principal)
CPT/HCPCS: 99281; 99283

== ENCOUNTER 2020-10-08 23:30 | Emergency (ER) | payer OTHER, SELFPAY ==
[2020-10-08 23:39] VITALS: BP 135/78; PULSE 78; RESP 14; TEMP 36.2; O2SAT 97
[2020-10-09] VITALS (37 sets, daily range): BP systolic 99–124; BP diastolic 59–81; PULSE 72–107; RESP 0–22; TEMP 36.8; O2SAT 86–100
[2020-10-09 00:41] LABS: Ur Creatinine 20 (Normal); Urine pH 7 (Normal)
[2020-10-09 00:42] LABS: UR Morphine/Opiate cutoff 300 Negative (Negative); Urine Amphetamines Negative (Negative); Urine Barbiturates Negative (Negative); Urine Benzodiazepines Negative (Negative); Urine Cocaine Negative (Negative); Urine MDMA Negative (Negative); Urine Methadone Negative (Negative); Urine Methamphetamines Negative (Negative); Urine Oxycodone Negative (Negative); Urine Phencyclidine Negative (Negative); Urine Tetrahydrocannabinol Negative (Negative); Urine Tricyclic Antidepressant Negative (Negative)
[2020-10-09 00:44] LABS: Add Manual Diff / Slide Review NO; Basophils Absolute Auto 100 /uL (0-100); Basophils Percent Auto 0.9 % (0-2); Eosinophils Absolute Auto 200 /uL (0-450); Eosinophils Percent Auto 2.3 % (2-4); Hematocrit 41.1 % (36-46); Lymphocytes Absolute Auto 2400 /uL (1100-4500); Lymphocytes Percent Auto 24.4 % (25-40); Mean Corpuscular HGB Conc 33.9 % (30-36); Mean Corpuscular Hemoglobin 27.8 PG (26-34); Mean Corpuscular Volume 81.9 fL (80-100); Monocytes Absolute Auto 500 /uL (0-900); Neutrophils Absolute Auto 6800 /uL (1500-7000); Neutrophils Percent Auto 67.4 % (50-75); Platelet Count 279 X10^3/uL (150-400); Red Blood Cell Count 5.02 X10^6/uL (4.0-5.2); Red Cell Distribution Width 13.7 % (11.6-14.8)
[2020-10-09 00:49] LABS: Bacteria Urine Many (>30); RBC Urine 0-1/HPF (0-5/HPF); Squamous Epithelial Cell Urine >30 /HPF (0-5/HPF); WBC Urine 1-5/HPF (0-5/HPF)
[2020-10-09 00:50] LABS: Acetaminophen < 10 ug/mL (10-30); Alanine Aminotransferase 95 IU/L (<35); Albumin Globulin Ratio 1.5 (1.0-2.8); Alkaline Phosphatase 70 U/L (38-126); Aspartate Aminotransferase 46 IU/L (14-36); BUN Creatinine Ratio 19.7 (6-22); Bilirubin Total 0.5 mg/dL (0.2-1.3); Blood Urea Nitrogen 12 mg/dL (7-17); Carbon Dioxide 26 mmol/L (22-32); Chloride 106 mmol/L (98-107); Estimated Glomerular Filt Rate > 60.0 mL/min (>60); Ethanol (ETOH) < 10 mg/dL; Globulin 3.4 g/dL (1.7-4.1); Glucose 101 mg/dL (70-100); HEMOLYSIS < 15 (0-50); Potassium 4.1 mmol/L (3.4-5.1); Salicylate < 1.0 mg/dL (<20); Sodium 141 mmol/L (137-145); Total Protein 8.4 g/dL (6.3-8.2)
[2020-10-09 00:50] LABS: Culture Indicated Urine Cult Not Indicated
--- NOTE | 2020-10-09 01:11 | PC.NURSE ---
Addendum entered by Divina Swift R.N. 10/09/20 02:49: She took remeron not ativan,Janusz CORDERO spoke to poison control concerning her. Original Note: Report taken from Janusz CORDERO.She denies any thoughts now of harming herself or others.She would not elaborate on why she had taken the ativan tonight.She said I just want to sleep. when asked about the overdose.
[2020-10-09 01:22] LABS: Free T4, Direct Thyroxine 1.21 ng/dL (0.78-2.19)
[2020-10-09 01:37] LABS: Thyroid Stimulating Hormone 0.695 uIU/mL (0.47-4.68)
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
--- NOTE | 2020-10-09 04:15 | PC.NURSE ---
Pt. appears asleep, noticeable chest rise and fall.
[2020-10-09] MEDS: cephALEXin 250 MG CAPSULE 500 MG PO (04:30)
[2020-10-09 04:47] LABS: COVID19 -Nasal RAPID Negative (Negative)
--- NOTE | 2020-10-09 05:12 | PC.NURSE ---
Pt. getting second EKG. Pt. is cooperative with staff.
--- NOTE | 2020-10-09 12:15 | PC.NURSE ---
pt sleeping. Lunch tray in room. pt doesn't wish to eat or drink at this time. 1:1 observation sitter at station across from doorway.
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
--- NOTE | 2020-10-09 20:44 | CM.SWNOTE ---
PRICING LEAD note Following Assessment, PRICING LEAD calls [facility] seeking placement for patient. PRICING LEAD speaks to Irene, who informs PRICING LEAD of open bed and requests clinical packet. PRICING LEAD faxes clinical packet to [facility]. PRICING LEAD calls [facility] at [phone] for update and speaks to Irene. Irene confirms receipt of clinicals but states that the clinican has not yet reviewed them. Accepted to [facility] 2E. Accepting Provider: RENETTA Mark. Nurse to Nurse:[phone]. Check in time: 0000 10/10. PRICING LEAD informs patient, Dr. Kaufman, GIL Rivera, and SIN aguila of the above. SIN Aguila to arrange transport. All parties remain agreeable to plan. Plan: Patient to transfer to [facility] to receive inpatient psychiatric treatment. FRED Kaufman
== END 2020-10-09 23:00 ==
PROVIDERS: Emergency Medicine; Emergency Provider Emergency Medicine
DX: T50.902A Poisoning by unspecified drugs, medicaments and biological substances, intentional self-harm, initial encounter (principal); N30.00 Acute cystitis without hematuria; Z20.822 Contact with and (suspected) exposure to COVID-19
CPT/HCPCS: 80053; 80305; 80320; 80329; 81003; 81015; 81025; 84439; 84443; 85025; 87635; 93005; 99284; C9803; G0480